=== PATIENT | male | born 1955 | race Two or more races ===

== ENCOUNTER 2024-05-16 17:15 | Inpatient (IN) | payer MEDICARE, BC, SELFPAY ==
[2024-05-16 17:43] VITALS: BP 155/81; PULSE 113; RESP 24; TEMP 38.3; O2SAT 96
--- NOTE | 2024-05-16 17:56 | XR_ITS ---
Examination: PA chest single view Technique technique: PA upright chest single view Exam date and time: May 16, 2024 1802 hrs. Comparison March 09, 2004 Indications: Chest pain today. Findings: The film is mislabeled right to left Normal heart size Mild elevation right hemidiaphragm No pneumonia or pulmonary edema Impression: No active disease
--- NOTE | 2024-05-16 17:58 | EDNOTE_ITS ---
<Statement entered by Selin Jimenez MD - 05/17/24 19:21> As co-signing physician, I was present and available for consult prn. I concur with the plan and care as documented by the midlevel provider. ED Fever RME/HPI General Chief Complaint: Fever Stated Complaint: FEVER, CHILLS Time Seen by Provider: 05/16/24 17:26 Arrival date/time: 05/16/24 17:15 RME / HPI RME / HPI Narrative: 68-year-old male patient with significant medical history hypertension, hypercholesterolemia, came in for evaluation regarding fever and chills. Patient's been having fever and chills since earlier this morning, severity mod erate. Patient had colonoscopy done yesterday in [place] apparently for follow-up regarding upper GI bleed a month ago and was admitted in [place] for 4 days. Currently patient is not having any GI bleed. Patient denies having any cough. Denies any sore throat, denies any abdominal pain denies any other complaints except for generalized body weakness. Went to PCP and was referred here for further management. Patient is only have 1 kidney. Related Data Allergies Allergy/AdvReac Type Severity Reaction Status Date / Time No Known Allergies Allergy Verified 05/16/24 17:16 Review of Systems Review of Systems Narrative Review of Systems: Review of system reviewed and within normal limits except mentioned in HPI Physical Exam Narrative Physical exam: VITAL SIGNS: Reviewed. GENERAL APPEARANCE: Alert and interactive, follows commands, no acute distress, HEAD AND FACE: Non-traumatic. ENT: PERRL, pink conjunctivitis, eyelid no trauma, Mucous membrane moist. NECK: Supple, nontender, no nuchal rigidity. CHEST: No tenderness, no crepitus, no paradoxical movement, no retractions. LUNGS: Clear, well ventilated, symmetric, no rales, no wheezing, no ronchi, no stridor, good breath sounds bilaterally. HEART: Regular rate, regular rhythm, no murmur, no gallops. ABDOMEN: Soft, positive bowel sounds, nondistended, no guarding, nontender, no rebound, no masses, RECTAL: Deferred. GENITAL: Deferred. NEUROLOGICAL: Gross motor function intact sensory function intact, Appropriate for age. MUSCULOSKELETAL: low back nontender, full range of motion. EXTREMITIES: Nontender, full range of motion. SKIN: Color pink, dry, no rash, no lacerations, no abrasions, no contusions. LYMPHATICS: Deferred. Course Quality Measures none Orders Category Date Time Status Bedside COVID-19 Antigen Test NOW Care 05/16/24 17:56 Active Bedside Influenza A&B Antigen Test NOW Care 05/16/24 17:57 Completed COVID-19 Screening Questionnaire NOW Care 05/16/24 20:[address] Screening NOW Care 05/16/24 17:57 Active Auction Block Clerk STAT Care 05/16/24 17:56 Active Continuous Pulse Oximetry STAT Care 05/16/24 17:56 Active Decision to Admit X1 Care 05/16/24 20:12 Active EKG (ED ONLY) *Do not use* NOW Care 05/16/24 17:56 Completed EKG (ED ONLY) *Do not use* NOW Care 05/16/24 20:15 Active In and Out Catheter X1PRN Care 05/16/24 17:56 Active Insert IV NOW Care 05/16/24 17:56 Active NPO STAT Care 05/16/24 17:56 Active Strict Intake and Output Routine Care 05/16/24 17:[address] abd pel w con SEPSIS ANURAG Stat Exams 05/16/24 17:56 Stop Req EKG (ED Only) Stat Exams 05/16/24 17:56 Ordered EKG (ED Only) Stat Exams 05/16/24 20:15 Ordered XR chest 1V SEPSIS PROTOCOL Stat Exams 05/16/24 17:56 Completed B-Type Natriuretic Peptide Stat Lab 05/16/24 18:15 Completed Blood Culture (Lab) Stat Lab 05/16/24 18:17 Received CBC Stat Lab 05/16/24 18:15 Completed Comprehensive Metabolic Panel Stat Lab 05/16/24 18:15 Completed LDH (Lactate Dehydrogenase) Stat Lab 05/16/24 18:15 Completed Lactate (Lactic Acid) Stat Lab 05/16/24 18:15 Completed Lipase Stat Lab 05/16/24 18:15 Completed Magnesium Stat Lab 05/16/24 18:15 Completed Partial Thromboplastin Time Stat Lab 05/16/24 18:15 Completed Phosphorous Stat Lab 05/16/24 18:15 Completed Procalcitonin Stat Lab 05/16/24 18:15 Completed Prothrombin Time with INR Stat Lab 05/16/24 18:15 Completed Troponin I Stat Lab 05/16/24 18:15 Completed Urinalysis Stat Lab 05/16/24 19:18 Completed Urine Culture Stat Lab 05/16/24 19:18 Received Ibuprofen Tab [Motrin Tab] Med 05/16/24 17:57 Discontinued 800 mg PO X1 ONE Oseltamivir [Tamiflu] Med 05/16/24 18:41 Discontinued 75 mg PO X1 ONE Sodium Chloride 0.9% 1000 ml [Ns] 1,000 ml Med 05/16/24 20:13 Active IV 999 mls/hr Sodium Chloride 0.9% 1000 ml [Ns] 1,000 ml Med 05/16/24 20:14 Active IV 999 mls/hr Oxygen Delivery NOW RT 05/16/24 17:56 Active Vital Signs Vital signs: Vital Signs Temperature 100.9 F H 05/16/24 17:43 Pulse Rate 113 H 05/16/24 17:43 Respiratory Rate 24 H 05/16/24 17:43 Blood Pressure 155/81 H 05/16/24 17:43 Pulse Oximetry (%) 96 05/16/24 17:43 Oxygen Delivery Method Room Air 05/16/24 17:43 Fever MDM Narrative MDM Narrative:: 68-year-old male patient with significant medical history hypertension, hypercholesterolemia, came in for evaluation regarding fever and chills. Patient's been having fever and chills since earlier this morning, severity moderate. Patient had colonoscopy done yesterday in [place] apparently for follow-up regarding upper GI bleed a month ago and was admitted in [place] for 4 days. Currently patient is not having any GI bleed. Patient denies having any cough. Denies any sore throat, denies any abdominal pain denies any other complaints except for generalized body weakness. Went to PCP and was referred here for further management. Patient is only have 1 kidney. Patient tested positive for flu, CBC slight leukocytosis, hemoglobin of 11.3 sodium 131, Pro-Vishal of 4.63, urinalysis no UTI, patient's creatinine today was noted to be 3.1, BUN of 30. Patient was given 2 L of IV fluids, and Tamiflu. Was also given Motrin. Plan of care discussed with the patient, and agrees to be admitted for further management regarding TACO and positive flu. Patient is only having 1 kidney. Care discussed with Dr. Simental, hospitalist, admitted the patient. Patient data External records reviewed:: None Clinical information provided by:: none Social determinants that could affect healthcare access:: none Patient has the following chronic illnesses:: None How is presenting disease/condition affected by chronic disease/condition?: no chronic disease Evaluation data The following diagnostics were reviewed and interpreted by me:: lab results, radiology exam(s) and EKG tracing(s) Lab and/or radiology exams considered but not ordered:: None Interpretation Summary: I personally reviewed and interpreted the x-ray of this patient. There is no acute abnormalities found, no infiltrates no pneumothorax no hemothorax normal chest x-ray. Review of other structures was without significant abnormal findings also. I additionally reviewed the radiologist report and agree with the interpretation. Patient tested positive for flu, CBC slight leukocytosis, hemoglobin of 11.3 sodium 131, Pro-Vishal of 4.63, urinalysis no UTI, patient's creatinine today was noted to be 3.1, BUN of 30. Medications / Prescriptions Medications or Prescriptions considered but not ordered:: None Medication administrations:: Medication Administration History Sodium Chloride (Ns) 1,000 mls @ 999 mls/hr IV .Q1H1M ONE Stop: 05/16/24 21:13 Sodium Chloride (Ns) 1,000 mls @ 999 mls/hr IV .Q1H1M ONE Stop: 05/16/24 21:14 Discontinued Medications Ibuprofen (Ibuprofen Tab 400 Mg Tablet) 800 mg PO X1 ONE Stop: 05/16/24 17:58 Last Admin: 05/16/24 18:06 Dose: 800 mg Documented By: OA Oseltamivir Phosphate (Oseltamivir 75 Mg Capsule) 75 mg PO X1 ONE Stop: 05/16/24 18:42 Last Admin: 05/16/24 19:37 Dose: 75 mg Documented By: SF Tamiflu, Motrin, and IV fluids for hydration Consultations Consultation(s) initiated? (list below): Yes Diagnosis Fever Differential Diagnosis: other (Influenza, TACO, generalized body weakness) Most likely diagnosis given after review of the tests above:: TACO, dehydration, influenza Admission Indicated Admission indicated?: not indicated Admission Request Was there a request for admission?: Yes Admission Attestation Admission request attestation: Discussed case with [Shaw,] from Hospitalist service regarding admission. Discussed patients ED course, exam findings, labs, and radiology results. The Hospitalist [agrees,] to accept the patient for admission. Disposition Plan Disposition Plan: Admit Discharge Plan Plan Patient Disposition: Admit Acute Care w/in Hospital Prescriptions/Referrals Referrals: Fidencio Rodriguez MD [Primary Care Provider] - In 1 week Problem List Clinical Impression: Influenza, TACO (acute kidney injury) Patient/Caregiver Discharge Instructions Print Language: Hebrew Stand Alone Forms: Jessie Award Info., Patient Portal Info Letter
[2024-05-16 18:06] VITALS: TEMP 37.9
[2024-05-16] MEDS: IBUPROFEN TAB 400 MG TABLET 800 MG PO (18:06)
[2024-05-16 18:35] LABS: Lactate (Lactic Acid) 1.9 mMol/L (0.4-2.0)
[2024-05-16 18:39] LABS: Basophils # (Auto) 0.1 Thou/mm3 (0.0-0.2); Basophils % (Auto) 1 % (0-2.5); Eosinophils # (Auto) 0.2 Thou/mm3 (0.0-0.5); Eosinophils % (Auto) 1 % (0-10); Hematocrit 32.8 % (41.0-53.0); Hemoglobin 11.3 g/dL (13.5-16.0); Immature Granulocytes % (Auto) 1 % (0-0); Immature Granulocytes Auto 0.07 Thou/mm3 (0.00-0.00); Lymphocytes # (Auto) 0.5 Thou/mm3 (1.0-4.8); Lymphocytes % (Auto) 5 % (10-50); Mean Corpuscular HGB Conc 34.5 g/dl (31.0-37.0); Mean Corpuscular Hemoglobin 31.1 pg (25.0-35.0); Mean Corpuscular Volume 90 fL (80-100); Monocytes % (Auto) 9 % (0-12); Neutrophils # (Auto) 9.2 Thou/mm3 (1.8-7.7); Neutrophils % (Auto) 84 % (37-80); Nucleated Red Blood Cell % 0 /100 WBC (0); Platelet Count 206 Thou/mm3 (140-440); Red Blood Count 3.63 Miln/mm3 (4.50-5.90)
[2024-05-16 18:55] LABS: Partial Thromboplastin Time 25.9 Seconds (22.0-36.0); Prothrombin Time 11.1 Seconds (9.0-12.2)
[2024-05-16 19:02] LABS: B-Type Natriuretic Peptide < 20 pg/mL (0-100)
[2024-05-16 19:12] LABS: Alanine Aminotransferase 38 U/L (10-49); Albumin, Serum 4.6 gm/dL (3.4-4.8); Alkaline Phosphatase 112 U/L (46-116); Anion Gap 9 (7-16); Aspartate Amino Transferase 31 U/L (0-34); BUN/Creatinine Ratio 10 Ratio (12-20); Bilirubin,Total 0.3 mg/dL (0.3-1.2); Blood Urea Nitrogen 30 mg/dL (9-23); Calcium 10.2 mg/dL (8.3-10.6); Calcium (Corrected) 10.2 mg/dL (8.5-10.1); Carbon Dioxide 18.2 mMol/L (20.0-31.0); Chloride 104 mMol/L (98-107); Creatinine (Component) 3.1 mg/dL (0.6-1.3); Globulin 2.3 gm/dL (2.3-3.5); Glucose 199 mg/dL (74-106); LDH (Lactate Dehydrogenase) 238 U/L (120-246); Lipase 73 U/L (12-53); Magnesium 1.5 mg/dL (1.6-2.6); Osmolality,Calculated 274 (275-295); Phosphorous 1.3 mg/dL (2.4-5.1); Potassium 4.8 mMol/L (3.4-5.1); Procalcitonin 4.63 ng/ml (0.0-0.49); Sodium 131 mMol/L (136-145); Total Protein 6.9 gm/dL (5.7-8.2); Troponin I < 0.020 ng/mL (0.0-0.045); eGFR 21 See Note
[2024-05-16 19:26] LABS: Collection Type, Urine Clean Catch; RBC,Urine 0 /hpf (0-3); WBC,Urine 0 /hpf (0-5)
[2024-05-16] MEDS: OSELTAMIVIR 75 MG CAPSULE PO (19:37)
[2024-05-16 19:38] VITALS: TEMP 37.3
[2024-05-16 19:46] VITALS: BP 141/85; PULSE 90; RESP 19; TEMP 36.8; O2SAT 98
[2024-05-16 19:49] LABS: Bacteria,Urine Rare; Bilirubin,Urine Negative (Negative); Blood,Urine Negative (Negative); Clarity,Urine Clear (Clear/Hazy); Color,Urine Lt-Yellow (Lt Yel-Yel); Glucose, Urine Negative (Negative); Hyaline Casts,Urine < 1 /hpf (0-1); Ketones,Urine Negative (Negative); Leukocyte Esterase,Urine Negative (Negative); Nitrite,Urine Negative (Negative); PH,Urine 5.5 (5.0-7.0); Protein,Urine 1+ (Neg - Trace); Specific Gravity,Urine 1.019 (1.001-1.035); Squamous Epithelial Cell,Urine < 1 /hpf (0-5); Urobilinogen,Urine Negative mg/dL (0.0-1.0)
[2024-05-16] MEDS: SODIUM CHLORIDE 0.9% 1000 ML 1,000 ML 999 ML IV ×2 (20:31→20:32)
--- NOTE | 2024-05-16 20:35 | ESHP_ITS ---
Documentation for date of: 05/16/24 HPI - Hospitalist History of Present Illness History of present illness: The patient is a 68-year-old male presenting with fever and chills that began earlier this morning. The fever peaked at 103?F but reduced to 98?F after taking Tylenol. He denies associated symptoms, including cough, sore throat, chest pain, dyspnea, headache, dizziness, abdominal pain, or diarrhea, although he reports a history of occasional diarrhea. He also endorses mild nausea without vomiting. The patient underwent a colonoscopy yesterday in [place] as part of a follow-up evaluation after a hospitalization one month ago for lower GI bleeding secondary to diverticulitis. The colonoscopy findings included multiple small- mouthed diverticula throughout the colon and diffuse severe melanosis of the entire colon. Per prior records, he was admitted from 04/13 to 04/18 due to bacteremia and was DC on ciprofloxacin and metronidazole. There has been no recurrence of GI bleeding since that hospitalization. His medical history includes hypertension, hyperlipidemia, and right nephrectomy for renal cell carcinoma, with no subsequent recurrence or chemotherapy. He denies smoking or alcohol use. Upon arrival to the ED, vital signs showed a temperature of 100.9?F, heart rate 113 bpm, respiratory rate 24/min, blood pressure 155/81 mmHg, and oxygen saturation of 96% on room air. Bedside testing was positive for influenza A. Laboratory studies revealed leukocytosis (WBC 11,000/?L), anemia (hemoglobin 11.3 g/dL), hyponatremia (Na 131 mmol/L), elevated creatinine (3.1 mg/dL), elevated procalcitonin (4.63 ng/mL), and hypomagnesemia (1.5 mg/dL). Urinalysis was negative for infection. Chest X-ray showed no acute cardiopulmonary disease. The patient received one dose of Tamiflu and ibuprofen in the ED for symptom management. Past Medical History (PMH): * Hypertension * Hyperlipidemia * Right nephrectomy for renal cell carcinoma Past Surgical History (PSH): * Right nephrectomy Medications: * Amlodipine-benazepril * Atorvastatin Allergies: * None reported Family History: * Son recently diagnosed with leukemia Social History: * Denies smoking or alcohol use Review of Systems Review of Systems Narrative Review of Systems: A 14 point review of systems was assessed and negative except for that per HPI Past Medical History Social History SMOKING STATUS: Never smoker Meds Home Medications and Allergies Allergies Allergy/AdvReac Type Severity Reaction Status Date / Time No Known Allergies Allergy Verified 05/16/24 17:16 Exam Vital Signs Temp Pulse Resp BP Pulse Ox O2 Del Method 98.3 F 90 19 141/85 H 98 Room Air 05/16/24 19:46 05/16/24 19:46 05/16/24 19:46 05/16/24 19:46 05/16/24 19:46 05/16/24 19:46 Narrative General: Well-nourished male, no acute distress, alert and oriented. HEENT: Normocephalic, atraumatic, EOMI. Hard of hearing. Neck: Supple, no lymphadenopathy. Chest: Clear breath sounds bilaterally, no wheezes, no rhonchi. Cardiac: S1, S2 irregular rate and rhythm, no murmurs. Abdomen: Soft, nontender, no organomegaly. Extremities: No cyanosis, clubbing, or edema. Neurologic: No focal deficits, no sensory deficits. Psychosocial: Non-focal, no signs of depression. Skin: Warm and dry. Results - Hospitalist Labs Diagrams: 05/16/24 18:15 05/16/24 18:15 Labs: Short CBC 05/16/24 Range/Units 18:15 WBC 11.0 H (3.8-10.6) Thou/mm3 Hgb 11.3 L (13.5-16.0) g/dL Hct 32.8 L (41.0-53.0) % Plt Count 206 (140-440) Thou/mm3 BMP 05/16/24 18:15 Sodium 131 L Potassium 4.8 Chloride 104 Carbon Dioxide 18.2 L BUN 30 H Creatinine 3.1 H Glucose 199 H Calcium 10.2 Cardiac Enzymes 05/16/24 Range/Units 18:15 Troponin I < 0.020 (0.0-0.045) ng/mL Liver Function 05/16/24 Range/Units 18:15 Total Bilirubin 0.3 (0.3-1.2) mg/dL AST 31 (0-34) U/L ALT 38 (10-49) U/L Alkaline Phosphatase 112 (46-116) U/L Albumin 4.6 (3.4-4.8) gm/dL Urine 05/16/24 Range/Units 19:18 Urine Color Lt-Yellow (Lt Yel-Yel) Urine Clarity Clear (Clear/Hazy) Urine pH 5.5 (5.0-7.0) Ur Specific [place] 1.019 (1.001-1.035) Urine Protein 1+ A (Neg - Trace) Urine Glucose (UA) Negative (Negative) Assessment & Plan -Hospitalist Patient Synopsis Influenza A infection: Positive influenza A; started on Tamiflu. Continue antiviral therapy and monitor for complications such as secondary bacterial infection or dehydration. Acute kidney injury on chronic kidney disease: Elevated creatinine, possibly prerenal from dehydration. Monitor renal function, optimize fluid status. Hyponatremia and hypomagnesemia: Correct electrolytes as needed. History of diverticulitis: No active GI symptoms; continue monitoring. Hypertension: Continue norvasc, hold ACEI; monitor blood pressure during admission. DVT prophylaxis: Heparin SC Renal diet Quality Measures Quality Measures VTE prophylaxis Advance care planning discussed with:: patient
[2024-05-16 20:36] VITALS: PULSE 83; RESP 18; RESP 98
[2024-05-16] MEDS: ATORVASTATIN CALCIUM 20 MG TABLET 40 MG PO (20:57)
[2024-05-16] MEDS: cefTRIAXone/D5w 1gm IV premix 50 ML IV (20:58)
[2024-05-16] MEDS: Magnesium Sulfate 2 GM Ivpb 2 GM/50 ML BAG IV (21:10)
[2024-05-16] MEDS: SOD PHOS ADDITIVE 22.5 MMOL in SODIUM CHLORIDE 0.9% 500 ML 500 ML 82.778 MMOL IV (21:20)
[2024-05-16] MEDS: SODIUM CHLORIDE 0.9% 1000 ML 1,000 ML 75 ML IV (21:37)
[2024-05-16] MEDS: INSULIN HUM REGULAR 1 UNIT/0.01 ML (PER UNIT) SC (21:58)
[2024-05-16] MEDS: HEPARIN SOD INJ 5000 UNIT/ML VIAL SC (21:58)
[2024-05-16 22:50] LABS: Respiratory Syncytial Virus Ag Negative (Negative)
[2024-05-16 23:05] LABS: Glucose Estimated Average 131 mg/dL (80-131); Hemoglobin A1C 6.2 % Hgb (4.8-6.0)
[2024-05-17] VITALS (10 sets, daily range): BP systolic 116–149; BP diastolic 76–84; PULSE 68–84; RESP 16–18; TEMP 36.2–36.8; O2SAT 96–98
[2024-05-17] MEDS: HEPARIN SOD INJ 5000 UNIT/ML VIAL SC ×3 (05:14→21:15)
[2024-05-17 05:55] LABS: Basophils % (Auto) 1 % (0-2.5); Eosinophils # (Auto) 0.1 Thou/mm3 (0.0-0.5); Eosinophils % (Auto) 2 % (0-10); Hemoglobin 9.2 g/dL (13.5-16.0); Immature Granulocytes % (Auto) 0 % (0-0); Immature Granulocytes Auto 0.02 Thou/mm3 (0.00-0.00); Lymphocytes # (Auto) 1.4 Thou/mm3 (1.0-4.8); Lymphocytes % (Auto) 23 % (10-50); Mean Corpuscular HGB Conc 34.1 g/dl (31.0-37.0); Mean Corpuscular Hemoglobin 31.3 pg (25.0-35.0); Mean Corpuscular Volume 92 fL (80-100); Monocytes # (Auto) 0.8 Thou/mm3 (0.0-0.8); Monocytes % (Auto) 14 % (0-12); Neutrophils # (Auto) 3.6 Thou/mm3 (1.8-7.7); Neutrophils % (Auto) 60 % (37-80); Nucleated Red Blood Cell % 0 /100 WBC (0); Platelet Count 185 Thou/mm3 (140-440); RDW Standard Deviation 41.4 fL (35.1-43.9); Red Blood Count 2.94 Miln/mm3 (4.50-5.90)
[2024-05-17 06:29] LABS: Anion Gap 8 (7-16); BUN/Creatinine Ratio 11 Ratio (12-20); Blood Urea Nitrogen 28 mg/dL (9-23); Calcium 9.1 mg/dL (8.3-10.6); Carbon Dioxide 20.9 mMol/L (20.0-31.0); Chloride 112 mMol/L (98-107); Creatinine (Component) 2.6 mg/dL (0.6-1.3); Estimated Creatinine Clearance 28.7 mL/min (>60); Glucose 110 mg/dL (74-106); Osmolality,Calculated 287 (275-295); Phosphorous 4.9 mg/dL (2.4-5.1); Potassium 4.8 mMol/L (3.4-5.1); Sodium 141 mMol/L (136-145); eGFR 26 See Note
[2024-05-17] MEDS: amLODIPine BESYLATE 5 MG TABLET 10 MG PO (08:47)
[2024-05-17] MEDS: cefTRIAXone/D5w 1gm IV premix 50 ML IV (08:47)
[2024-05-17] MEDS: OSELTAMIVIR 6 MG/ML 30 MG PO (10:42)
--- NOTE | 2024-05-17 11:53 | PC.SS ---
Patient is alert/oriented. He resides with family. He is independent with ADL's. Patient was admitted for sepsis. Patient is positive for influenza. His p.c.p. : Dr. Rodriguez with [facility]. Last appt. was 2 weeks ago. Patient states his alt medical decision maker is his son, Ricki. He will also provide transportation as needed. D/c plan: return home.
[2024-05-17] MEDS: INSULIN HUM REGULAR 1 UNIT/0.01 ML (PER UNIT) SC (12:00)
[2024-05-17] MEDS: SODIUM CHLORIDE 0.9% 1000 ML 1,000 ML 75 ML IV (12:31)
--- NOTE | 2024-05-17 16:31 | PD.HHPROG ---
Documentation for date of: 05/17/24 Subjective - Hospitalist Subjective Interval history: Patient was seen and examined at the bedside. 24-hour events, labs, imaging studies, and reports reviewed in details. Creatinine slightly improved. Patient denies new complaints. He feels okay. He denied any cough or shortness of breath. Review of Systems Review of Systems Narrative Review of Systems: Review of systems: 12 point of system reviewed. All negative except as mentioned above. Exam Vital Signs Temp Pulse Resp BP Pulse Ox O2 Del Method O2 Flow Rate 97.1 F 79 18 149/84 H 97 Room Air 0 05/17/24 16:00 05/17/24 16:00 05/17/24 16:00 05/17/24 16:00 05/17/24 16:00 05/17/24 16:00 05/16/24 20:36 Narrative General: Alert and oriented x3. In no acute distress. Eyes: Pupils are equal and reactive to light bilaterally. HEENT: Atraumatic, normocephalic. No JVD noted. Cardiovascular: Normal S1 and S2. Normal rate and regular rhythm. No murmurs appreciated. No peripheral pitting edema noted. No JVD noted. Respiratory: No respiratory distress. Lungs are clear to auscultation bilaterally. No wheezing or crackles heard. Abdomen: Soft, nontender, nondistended. Skin: No rash. Warm to touch. Musculoskeletal: No gross injuries. Able to move all 4 extremities. Neuro: Alert and oriented x3. Sensation is intact throughout. Strength is 5/5 and symmetric. No focal neuro deficits. Psych: Normal affect and mood. Objective - Hospitalist Labs Diagram: 05/17/24 05:15 05/17/24 05:15 Labs: Laboratory Results - last 24 hr 05/16/24 05/16/24 05/16/24 18:15 19:18 21:45 WBC 11.0 H RBC 3.63 L Hgb 11.3 L Hct 32.8 L MCV 90 MCH 31.1 MCHC 34.5 RDW Std Deviation 40.0 Plt Count 206 Neut % (Auto) 84 H Lymph % (Auto) 5 L [place] % (Auto) 9 Eos % (Auto) 1 Baso % (Auto) 1 Neut # (Auto) 9.2 H Lymph # (Auto) 0.5 L [place] # (Auto) 1.0 H Eos # (Auto) 0.2 Baso # (Auto) 0.1 Immature Gran # (Auto) 0.07 H Absolute Nucleated RBC 0.00 Immature Gran % 1 H Nucleated RBC % 0 PT 11.1 INR 1.0 APTT 25.9 Sodium 131 L Potassium 4.8 Chloride 104 Carbon Dioxide 18.2 L Anion Gap 9 BUN 30 H Creatinine 3.1 H Estim Creat Clear Calc Not Performed. eGFR 21 L BUN/Creatinine Ratio 10 L Glucose [address] Glu mg/dL 131 Hemoglobin A1c 6.2 H Calculated Osmolality 274 L Lactic Acid 1.9 Calcium 10.2 Corrected Calcium 10.2 H Phosphorus 1.3 L Magnesium 1.5 L Total Bilirubin 0.3 AST 31 ALT 38 Alkaline Phosphatase 112 Lactate Dehydrogenase 238 Troponin I < 0.020 B-Natriuretic Peptide < 20 Total Protein 6.9 Albumin 4.6 Globulin 2.3 Albumin/Globulin Ratio 2.0 Lipase 73 H Procalcitonin 4.63 H Ur Collection Type Clean Catch Urine Color Lt-Yellow Urine Clarity Clear Urine pH 5.5 Ur Specific Deputy 1.019 Urine Protein 1+ A Urine Glucose (UA) Negative Urine Ketones Negative Urine Blood Negative Urine Nitrite Negative Urine Bilirubin Negative Urine Urobilinogen (Auto) Negative Ur Leukocyte Esterase Negative Urine RBC 0 Urine WBC 0 Ur Squamous Epith Cells < 1 Urine Bacteria Rare Hyaline Casts < 1 RSV Rapid Negative 05/17/24 05:15 WBC 6.0 D RBC 2.94 L Hgb 9.2 L D Hct 27.0 L MCV 92 MCH 31.3 MCHC 34.1 RDW Std Deviation 41.4 Plt Count 185 Neut % (Auto) 60 Lymph % (Auto) 23 [place] % (Auto) 14 H Eos % (Auto) 2 Baso % (Auto) 1 Neut # (Auto) 3.6 Lymph # (Auto) 1.4 [place] # (Auto) 0.8 Eos # (Auto) 0.1 Baso # (Auto) 0.0 Immature Gran # (Auto) 0.02 H Absolute Nucleated RBC 0.00 Immature Gran % 0 Nucleated RBC % 0 PT INR APTT Sodium 141 D Potassium 4.8 Chloride 112 H Carbon Dioxide 20.9 Anion Gap 8 BUN 28 H Creatinine 2.6 H D Estim Creat Clear Calc 28.7 L eGFR 26 L BUN/Creatinine Ratio 11 L Glucose [address] Glu mg/dL Hemoglobin A1c Calculated Osmolality 287 Lactic Acid Calcium 9.1 Corrected Calcium Phosphorus 4.9 Magnesium 2.0 Total Bilirubin AST ALT Alkaline Phosphatase Lactate Dehydrogenase Troponin I B-Natriuretic Peptide Total Protein Albumin Globulin Albumin/Globulin Ratio Lipase Procalcitonin Ur Collection Type Urine Color Urine Clarity Urine pH Ur Specific Deputy Urine Protein Urine Glucose (UA) Urine Ketones Urine Blood Urine Nitrite Urine Bilirubin Urine Urobilinogen (Auto) Ur Leukocyte Esterase Urine RBC Urine WBC Ur Squamous Epith Cells Urine Bacteria Hyaline Casts RSV Rapid Assessment & Plan Patient Synopsis 68-year-old male who presented with a chief complaint of fevers, chills, generalized weakness. He was found to have influenza A and TACO on CKD. Influenza A infection: Positive influenza A; started on Tamiflu. Continue antiviral therapy and monitor for complications such as secondary bacterial infection or dehydration. Acute kidney injury on chronic kidney disease: Improved possibly prerenal from dehydration. Held benazepril. Monitor renal function, continue IV fluids. Monitor BMP. Avoid nephrotoxins. Hyponatremia and hypomagnesemia: Correct electrolytes as needed. History of diverticulitis: No active GI symptoms; continue monitoring. Hypertension: Continue norvasc, hold ACEI; monitor blood pressure during admission. DVT prophylaxis: Heparin SC Renal diet Time Spent with Patient Time: Total time spent is greater than 50% in coordination of care (as documented) at patient's floor/unit and/or counseling patient: Time with patient: 25 - 35 minutes Reason for Continued Stay Reason for continued stay: acute renal failure Quality Measures Quality Measures VTE prophylaxis Advance care planning discussed with:: patient
[2024-05-17] MEDS: ATORVASTATIN CALCIUM 20 MG TABLET 40 MG PO (21:17)
[2024-05-18] VITALS (9 sets, daily range): BP systolic 137–151; BP diastolic 75–93; PULSE 66–83; RESP 16–18; TEMP 36.1–36.8; O2SAT 97–98
[2024-05-18] MEDS: SODIUM CHLORIDE 0.9% 1000 ML 1,000 ML 75 ML IV (02:39)
[2024-05-18] MEDS: HEPARIN SOD INJ 5000 UNIT/ML VIAL SC (05:11)
[2024-05-18 06:19] LABS: Basophils % (Auto) 1 % (0-2.5); Eosinophils # (Auto) 0.2 Thou/mm3 (0.0-0.5); Eosinophils % (Auto) 3 % (0-10); Hematocrit 28.6 % (41.0-53.0); Hemoglobin 9.6 g/dL (13.5-16.0); Immature Granulocytes % (Auto) 1 % (0-0); Immature Granulocytes Auto 0.03 Thou/mm3 (0.00-0.00); Lymphocytes # (Auto) 1.5 Thou/mm3 (1.0-4.8); Lymphocytes % (Auto) 25 % (10-50); Mean Corpuscular HGB Conc 33.6 g/dl (31.0-37.0); Mean Corpuscular Hemoglobin 31.2 pg (25.0-35.0); Mean Corpuscular Volume 93 fL (80-100); Monocytes # (Auto) 0.7 Thou/mm3 (0.0-0.8); Monocytes % (Auto) 11 % (0-12); Neutrophils # (Auto) 3.6 Thou/mm3 (1.8-7.7); Neutrophils % (Auto) 60 % (37-80); Nucleated Red Blood Cell % 0 /100 WBC (0); Platelet Count 179 Thou/mm3 (140-440); RDW Standard Deviation 41.8 fL (35.1-43.9); Red Blood Count 3.08 Miln/mm3 (4.50-5.90)
[2024-05-18 06:39] LABS: Anion Gap 6 (7-16); BUN/Creatinine Ratio 8 Ratio (12-20); Blood Urea Nitrogen 17 mg/dL (9-23); Calcium 9.7 mg/dL (8.3-10.6); Carbon Dioxide 22.3 mMol/L (20.0-31.0); Chloride 113 mMol/L (98-107); Creatinine (Component) 2.2 mg/dL (0.6-1.3); Estimated Creatinine Clearance 33.9 mL/min (>60); Glucose 100 mg/dL (74-106); Osmolality,Calculated 282 (275-295); Potassium 4.5 mMol/L (3.4-5.1); Sodium 141 mMol/L (136-145); eGFR 32 See Note
[2024-05-18] MEDS: cefTRIAXone/D5w 1gm IV premix 50 ML IV (08:28)
[2024-05-18] MEDS: OSELTAMIVIR 6 MG/ML 30 MG PO (08:28)
[2024-05-18] MEDS: amLODIPine BESYLATE 5 MG TABLET 10 MG PO (08:29)
--- NOTE | 2024-05-18 09:56 | PD.RESDS ---
Planned Discharge Date 05/18/24 DS: Providers Provider Date of admission: 05/16/24 20:30 Primary care physician: Fidencio Rodriguez MD Admitting Provider: Camden Simental MD Attending Provider on Admission: Camden Simental MD Consults: 05/16/24 23:06 Referral Cori Routine Comment: 05/16/24 23:07 Referral Respiratory Therapy Routine Comment: Attending Provider on DC: Tiffanie Guzman MD Discharging Provider: Tiffanie Guzman MD DS: Diagnosis Problem List Completed Was Problem List Reviewed/Reconciled?: Yes Hospital Course Hospital Course Hospital course: Patient was a 68-year-old male with HTN, HLD, history of renal cell carcinoma s/p right nephrectomy recent GI bleed secondary to diverticulitis who presented with fever and chills associated with mild nausea without vomiting. He denied any upper or lower GI bleed. Patient was found to have influenza A and labs were consistent with TACO on CKD. Patient was started on Tamiflu, renally dosed, and given IV fluids. His home benazepril was held and he was started on amlodipine for hypertension. As patient's condition and labs improved, he was stable for discharge. Return precautions were provided for patient. #Influenza A #TACO on CKD #Dehydration, improved #Hypertension #Electrolyte abnormalities #History of diverticulitis Discharge plan: Renally dosed Tamiflu was sent to complete 5-day course. Prescription of amlodipine 10 mg was also sent, and patient was advised to hold combination amlodipine?benazepril until repeating a basic metabolic panel and following up with PCP. Patient's pharmacy was made aware of change to antihypertensive regimen. Patient seen and care discussed with my attending Dr. Burk. Tiffanie Guzman MD PGY-3 Status at Discharge Cognitive/behavioral status at discharge: AAOx3 Time Spent with Patient Time attestation: Total time spent providing and/or coordinating discharge services: Time spent: Greater than 30 minutes Exam Vital Signs Temp Pulse Resp BP Pulse Ox O2 Del Method O2 Flow Rate 98.3 F 82 16 151/84 H 98 Room Air 0 05/18/24 07:52 05/18/24 08:29 05/18/24 07:52 05/18/24 08:29 05/18/24 07:52 05/18/24 07:52 05/18/24 04:00 Narrative Exam Gen: AAOx3, resting comfortably, pleasant to speak with HEENT: NCAT, PERRLA, EOMI, MMM, no LAD CVS: normal S1, S2. RRR. No MRG Resp: CTA B/L. No rhonchi, rales, crackles or wheezing Abd: soft, non-tender, non-distended. BS+ in all 4 quadrants. No CVA tenderness MSK: Good ROM in BUE & BLE. No edema or rash. Neuro: CN II-XII grossly intact. Strength 5/5 in BUE & BLE. Discharge Plan Plan Patient Disposition: HOME (Self Care) Patient condition on transfer: Stable Care Plan Goals: Please follow up with your PCP in 1 week, after having basic metabolic panel drawn to evaluate your kidney function. We have held your amlodipine-benazepril combo medication, and given a prescription of amlodipine 10mg only for hypertension. As above, have your PCP resume combo medication once kidney function improves We have sent Tamiflu 30mg per day for another 3 days Prescriptions/Referrals Prescriptions/Med Rec: New amlodipine 10 mg tablet 10 mg PO QDAY 30 Days Qty: 30 0RF oseltamivir 30 mg capsule 30 mg PO QDAY 3 Days Qty: 3 0RF Continued atorvastatin 40 mg tablet 40 mg PO QDAY Patient Comments: TAKE 1 TABLET BY MOUTH EVERY DAY Held amlodipine-benazepril 10-20 mg capsule 1 cap PO QDAY Hold Instructions: Resume on 06/01/24. Holding combo (amlodipine-benazepril) due to TACO. Repeat basic metabolic panel, and if kidney function improves, have PCP resume amlodipine-benazepril Patient Comments: TAKE 1 CAPSULE BY MOUTH EVERY DAY Referrals: Fidencio Rodriguez MD [Primary Care Provider] - Outpatient Orders (i.e. Home Health, Labs, Imaging): Basic Metabolic Panel (Routine) Timeframe: 1 Week Facility: [facility] - Location: Laboratory Ordered By: Tiffanie Guzman Patient/Caregiver Discharge Instructions Discharge Activity: activity as tolerated Education Materials: The Flu (Influenza) Print Language: Uzbek Stand Alone Forms: Jessie Award Info., Patient Portal Info Letter Discharge Order Discharge Orders: Discharge (Routine); Ordered 05/18/24 Ordered By: Tiffanie Guzman Quality Discharge Quality Measures VTE prophylaxis Attestestation Attestation I reviewed labs, imaging, EKG, home medications and prior available records. Face to face evaluation was performed by me. I have personally examined the patient and discussed assessment and plan with the IM team. I reviewed the resident note and agree with the plan with exceptions as below. See my addendum in a separate note for the same date.
--- NOTE | 2024-05-18 11:46 | PD.ADDPROG ---
Addendum Progress Note Addendum Date of report being addended: 05/18/24 Narrative: Attending's attestation: I reviewed labs, imaging, EKG, home medications and prior available records. Face to face evaluation was performed by me. I have personally examined the patient and discussed assessment and plan with the IM team. I reviewed the resident note and agree with the plan with exceptions as below. Influenza A Acute kidney injury Dehydration Primary hypertension
--- NOTE | 2024-05-18 11:49 | PD.ADDDSCHGE ---
Addendum Discharge Addendum Date of report being addended: 05/18/24 Narrative: Attending's attestation: I reviewed labs, imaging, EKG, home medications and prior available records. Face to face evaluation was performed by me. I have personally examined the patient and discussed assessment and plan with the IM team. I reviewed the resident note and agree with the plan with exceptions as below. Influenza A Acute kidney injury Dehydration Primary hypertension Complete a course of Tamiflu Hold benazepril. Continue amlodipine. Monitor BP. Repeat kidney function test in 1 week. If back to baseline then discussed resuming benazepril with PCP. Encourage oral hydration. Time spent is 40 minutes. More than 50% of the time was spent on patient education and coordination of care.
== END 2024-05-18 12:34 | disposition home or self-care (01) | DRG 683 ==
LOC: SERX 20:39 → SERHOLD 20:56 → S3SX 22:36
PROVIDERS: Nurse Practitioner Family; Admitting Provider Internal Medicine; Emergency Provider Emergency Medicine; PCP Internal Medicine; Visit Provider Internal Medicine
DX: N17.9 Acute kidney failure, unspecified (principal); E87.1 Hypo-osmolality and hyponatremia; E86.0 Dehydration; E78.00 Pure hypercholesterolemia, unspecified; E83.42 Hypomagnesemia; I12.9 Hypertensive chronic kidney disease with stage 1 through stage 4 chronic kidney disease, or unspecified chronic kidney disease; J10.1 Influenza due to other identified influenza virus with other respiratory manifestations; N18.9 Chronic kidney disease, unspecified; D63.1 Anemia in chronic kidney disease; Z85.528 Personal history of other malignant neoplasm of kidney; Z87.19 Personal history of other diseases of the digestive system; Z90.5 Acquired absence of kidney
CPT/HCPCS: 36415; 71045; 80048; 80053; 81001; 83036; 83605; 83615; 83690; 83735; 83880; 84100; 84145; 84484; 85025; 85610; 85730; 87040; 87081; 87086; 87400; 87634; 87811; 93005; 93225; 94762; 96361; 96365; 96372; 99285; J0696; J1643; J1815; J3475; J7030; J7040; A9270; J1644

== ENCOUNTER 2024-07-08 11:28 | Emergency (ER) | payer MEDICARE, BC, SELFPAY ==
[2024-07-08 11:28] VITALS: BMI 29.1
--- NOTE | 2024-07-08 11:34 | EKG_ITS ---
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
[2024-07-08 11:53] VITALS: BP 169/94; PULSE 105; RESP 20; TEMP 37.9; O2SAT 94; BMI 29.0
[2024-07-08 12:07] VITALS: TEMP 39.1
--- NOTE | 2024-07-08 12:07 | XR_ITS ---
Examination: PA lateral chest 2 views TECHNIQUE: Upright PA lateral chest 2 views Exam date and time: July 08, 2024 1222 hours INDICATIONS: Dizziness fever beginning 3 days ago. FINDINGS: Atelectasis versus early pneumonia left base Mild prominence left ventricle No pulmonary edema IMPRESSION: Atelectasis versus early pneumonia left base
--- NOTE | 2024-07-08 12:08 | PD.EDRME ---
Rapid Medical Screening Exam [facility] Arrival date/time: 07/08/24 11:28 68-year-old male presents emergency department complaints of fever, cough, body aches nausea vomiting since last night Chief Complaint: Abdominal Pain Vital signs: Vital Signs Temperature 100.3 F 07/08/24 11:53 Pulse Rate 105 H 07/08/24 11:53 Respiratory Rate 20 07/08/24 11:53 Blood Pressure 169/94 H 07/08/24 11:53 Pulse Oximetry (%) 94 L 07/08/24 11:53 Oxygen Delivery Method Room Air 07/08/24 11:53
[2024-07-08] MEDS: IBUPROFEN TAB 400 MG TABLET 800 MG PO (12:49)
[2024-07-08] MEDS: ONDANSETRON ODT 4 MG TABRAP PO (12:50)
[2024-07-08 13:01] LABS: Lactate (Lactic Acid) 2.3 mMol/L (0.4-2.0)
[2024-07-08 13:08] LABS: Basophils % (Auto) 0 % (0-2.5); Eosinophils % (Auto) 0 % (0-10); Hematocrit 43.7 % (41.0-53.0); Immature Granulocytes % (Auto) 1 % (0-0); Lymphocytes # (Auto) 1.5 Thou/mm3 (1.0-4.8); Lymphocytes % (Auto) 16 % (10-50); Mean Corpuscular HGB Conc 34.3 g/dl (31.0-37.0); Mean Corpuscular Hemoglobin 30.7 pg (25.0-35.0); Mean Corpuscular Volume 90 fL (80-100); Monocytes # (Auto) 1.2 Thou/mm3 (0.0-0.8); Monocytes % (Auto) 12 % (0-12); Neutrophils # (Auto) 6.9 Thou/mm3 (1.8-7.7); Neutrophils % (Auto) 71 % (37-80); Nucleated Red Blood Cell % 0 /100 WBC (0); Platelet Count 217 Thou/mm3 (140-440); RDW Standard Deviation 45.6 fL (35.1-43.9); Red Blood Count 4.88 Miln/mm3 (4.50-5.90); White Blood Count 9.8 Thou/mm3 (3.8-10.6)
[2024-07-08 13:33] LABS: Alanine Aminotransferase 45 U/L (10-49); Albumin, Serum 5.1 gm/dL (3.4-4.8); Albumin/Globulin Ratio 1.9 (1.2-2.2); Alkaline Phosphatase 140 U/L (46-116); Anion Gap 13 (7-16); Aspartate Amino Transferase 37 U/L (0-34); BUN/Creatinine Ratio 15 Ratio (12-20); Bilirubin,Total 0.6 mg/dL (0.3-1.2); Blood Urea Nitrogen 23 mg/dL (9-23); Calcium 9.8 mg/dL (8.3-10.6); Calcium (Corrected) 9.8 mg/dL (8.5-10.1); Carbon Dioxide 23.9 mMol/L (20.0-31.0); Chloride 98 mMol/L (98-107); Creatinine (Component) 1.5 mg/dL (0.6-1.3); Estimated Creatinine Clearance 48.1 mL/min (>60); Globulin 2.7 gm/dL (2.3-3.5); Glucose 105 mg/dL (74-106); Osmolality,Calculated 273 (275-295); Procalcitonin 0.86 ng/ml (0.0-0.49); Sodium 135 mMol/L (136-145); Total Protein 7.8 gm/dL (5.7-8.2); eGFR 50 See Note
[2024-07-08 14:46] VITALS: BP 120/64; PULSE 100; RESP 20; TEMP 36.8; O2SAT 96
[2024-07-08 15:12] LABS: Collection Type, Urine Clean Catch; Squamous Epithelial Cell,Urine 0 /hpf (0-5)
[2024-07-08 15:17] LABS: Bilirubin,Urine Negative (Negative); Blood,Urine Negative (Negative); Clarity,Urine Clear (Clear/Hazy); Color,Urine Yellow (Lt Yel-Yel); Glucose, Urine Negative (Negative); Ketones,Urine Negative (Negative); Leukocyte Esterase,Urine Negative (Negative); Nitrite,Urine Negative (Negative); Protein,Urine 1+ (Neg - Trace); RBC,Urine < 1 /hpf (0-3); Specific Gravity,Urine 1.019 (1.001-1.035); Urobilinogen,Urine Negative mg/dL (0.0-1.0); WBC,Urine 1 /hpf (0-5)
[2024-07-08 15:58] LABS: Reflex Lactate? Y
[2024-07-08 16:41] LABS: Lactic Acid, 3 HR 2.1 mMol/L (0.4-2.0)
[2024-07-08 19:23] VITALS: BP 114/74; PULSE 85; RESP 18; TEMP 36.2; O2SAT 97
--- NOTE | 2024-07-08 20:05 | EDNOTE_ITS ---
ED Abdominal Pain RME/HPI General Chief Complaint: Abdominal Pain Stated complaint: ABD. PAIN, NAUSEA, VOMITING Time seen by provider: 07/08/24 18:43 Arrival date/time: 07/08/24 11:28 Limitations: no limitations RME / HPI RME / HPI narrative: 07/08/24 11:28 68-year-old male presents emergency department complaints of fever, cough, body aches nausea vomiting since last night Dr. [facility] Main ED Evaluation: 68yo male presents to the ED for a chief complaint of a fever x last night. Patient states he's had a fever of 103 since last night. He reports associated nausea and a minimal cough. He denies any vomiting, abdominal pain, back pain, UTI symptoms or any other associated symptoms. He denies any sick contacts at home. He states he is drinking fluids. No known allergies. Related Data Home Medications ?Medication ?Instructions ?Recorded ?Confirmed amlodipine 10 mg-benazepril 20 mg 1 cap PO QDAY 05/17/24 capsule Held on 05/18/24. Instructions: Resume on 06/01/24. Holding combo (amlodipine-benazepril) due to TACO. Repeat basic metabolic panel, and if kidney function improves, have PCP resume amlodipine-benazepril atorvastatin 40 mg tablet 40 mg PO QDAY 05/17/2405/17 Previous Rx's ?Medication ?Instructions ?Recorded amoxicillin 875 mg-potassium 1 tab PO BID #20 tabs 08/27 clavulanate 125 mg tablet Allergies Allergy/AdvReac Type Severity Reaction Status Date / Time No Known Allergies Allergy Verified 07/08/24 11:30 Review of Systems Review of Systems Systems Reviewed: All systems reviewed, normal except as documented Past Medical History Past Medical History CARDIAC: Negative Cardiac Disorders or Congestive Heart Failure RESPIRATORY: Negative Chronic Obstructive Pulmonary Disease (COPD) or Asthma GENITOURINARY: Negative Renal Disease ENDOCRINE: Negative Diabetes Mellitus Type 1 or Diabetes Mellitus Type 2 HEMATOLOGIC: Negative Sickle Cell Disease Social History SMOKING STATUS: Never smoker ED Exam General Limitations: Present no limitations General appearance: Present alert and in no apparent distress Head Head exam: Present atraumatic Eye Eye exam: Present normal appearance, PERRL and EOMI ENT ENT exam: Present normal exam, normal oropharynx and mucous membranes moist Neck Neck exam: Present normal inspection, full ROM and trachea midline Chest Chest inspection: Present normal inspection and symmetric chest wall rise Respiratory Respiratory exam: Present normal lung sounds bilaterally Cardiovascular Cardiovascular exam: Present regular rate, normal rhythm and normal heart sounds Abdominal Exam Abdominal exam: Present soft and normal bowel sounds Extremities Exam Extremities exam: Present normal inspection and full ROM Back Exam Back exam: Present normal inspection and full ROM Neurological Exam Neurological exam: Present alert, oriented X3 and CN II-XII intact Psychiatric Psychiatric exam: Present normal affect and normal mood Skin Skin exam: Present warm, dry, intact and normal color Course Course Course Narrative: CXR is ordered for determining the etiology of cough. Quality Measures none Orders Category Date Time Status Bedside COVID-19 Antigen Test NOW Care 07/08/24 12:07 Completed Bedside Influenza A&B Antigen Test NOW Care 07/08/24 12:[address] Screening NOW Care 07/08/24 17:45 Completed EKG (ED ONLY) *Do not use* NOW Care 07/08/24 11:34 Completed EKG (ED Only) Stat Exams 07/08/24 11:34 Draft EKG (ED Only) Urgent Exams 07/08/24 11:34 Stop Req XR chest 2V Stat Exams 07/08/24 12:07 Completed Blood Culture (Lab) Stat Lab 07/08/24 11:50 Results CBC Stat Lab 07/08/24 12:50 Completed Comprehensive Metabolic Panel Stat Lab 07/08/24 12:50 Completed Lactate (Lactic Acid) Stat Lab 07/08/24 12:50 Completed Lactic Acid [Lactate (Lactic Acid)] Stat Lab 07/08/24 21:43 Completed Lactic Acid, 3 HR Stat Lab 07/08/24 16:29 Completed Procalcitonin Stat Lab 07/08/24 12:50 Completed Urinalysis Stat Lab 07/08/24 15:02 Completed Urine Culture Stat Lab 07/08/24 15:02 Completed Azithromycin Inj [Zithromax Inj] 500 mg Med 07/08/24 20:14 Discontinued Sodium Chloride 0.9% 250 ml [Ns] 250 ml IV X1 Ibuprofen Tab [Motrin Tab] Med 07/08/24 12:07 Discontinued 800 mg PO X1 ONE Ondansetron Odt [Zofran Odt] Med 07/08/24 12:07 Discontinued 4 mg PO X1 ONE Sodium Chloride 0.9% 1000 ml [Ns] 2,517 ml Med 07/08/24 20:14 Discontinued IV 2,517 mls/hr cefTRIAXone [Rocephin] 1,000 mg Med 07/08/24 20:34 Discontinued Sodium Chloride 0.9% [Ns] 50 ml IV X1 Vital Signs Vital signs: Vital Signs Temperature 100.3 F 07/08/24 11:53 Pulse Rate 105 H 07/08/24 11:53 Respiratory Rate 20 07/08/24 11:53 Blood Pressure 169/94 H 07/08/24 11:53 Pulse Oximetry (%) 94 L 07/08/24 11:53 Oxygen Delivery Method Room Air 07/08/24 11:53 Pulse ox is 94% on room air, which is slightly hypoxic according to my interpretation. Abdominal Pain MDM Patient data External records reviewed:: [facility] previous records (Per chart review, patient was admitted here on 05/16/24 for TACO.) Clinical information provided by:: patient Social determinants that could affect healthcare access:: none Patient has the following chronic illnesses:: none How is presenting disease/condition affected by chronic disease/condition?: no chronic disease Evaluation data The following diagnostics were reviewed and interpreted by me:: lab results and EKG tracing(s) Lab and/or radiology exams considered but not ordered:: none Interpretation Summary: Bedside Influenza is positive, WBC count is normal, Creatinine is 1.5, Lactic Acid is elevated at 2.1, Procalcitonin is elevated at 0.86, UA is unremarkable, according to my interpretation. Repeat Lactic Acid is normal at 1.5. EKG done at 1151, sinus tachycardia, rate of 102, QTc: 373, no ST elevations or depressions, no STEMI, according to my interpretation. [facility] Report Signed Patient: MANJU GARCIA. Record#: [id number] Birthdate: 1955 Age/Sex: 68 / M Location: [facility] Attending Dr: Ordering Physician: Randy (OMEGA),Narayan DUFF Date of Service: 07/08/24 Procedure(s): XR chest 2V Accession Number(s): [id number] cc: Randy HAWTHORNE),Narayan DUFF; Bertrand Henriquez MD~ Examination: PA lateral chest 2 views TECHNIQUE: Upright PA lateral chest 2 views Exam date and time: July 08, 2024 1222 hours INDICATIONS: Dizziness fever beginning 3 days ago. FINDINGS: Atelectasis versus early pneumonia left base Mild prominence left ventricle No pulmonary edema IMPRESSION: Atelectasis versus early pneumonia left base Dictated By: Bertrand Henriquez MD Signed By: <Electronically signed by Bertrand Henriquez MD in OV> 07/08/24 1233 Medications / Prescriptions Medications or Prescriptions considered but not ordered:: none Medication administrations:: Medication Administration History Discontinued Medications Sodium Chloride (Ns) 2,517 mls @ 2,517 mls/hr 30 ml/kg infuse over 60 min (2517 ml) IV .Q1H ONE; Protocol Stop: 07/08/24 21:13 Last Admin: 07/08/24 20:32 Dose: 2,517 mls/hr Documented By: UCHE Azithromycin 500 mg/ Sodium (Chloride) 250 mls @ 250 mls/hr IV X1 ONE Stop: 07/08/24 21:13 Last Admin: 07/08/24 21:06 Dose: 250 mls/hr Documented By: UCHE Ceftriaxone Sodium 1,000 mg/ (Sodium Chloride) 50 mls @ 100 mls/hr IV X1 ONE Stop: 07/08/24 21:03 Last Infusion: 07/08/24 21:13 Dose: Infused Documented By: Admin: 07/08/24 20:43 Dose: 100 mls/hr Documented By: UCHE Ibuprofen (Ibuprofen Tab 400 Mg Tablet) 800 mg PO X1 ONE Stop: 07/08/24 12:08 Last Admin: 07/08/24 12:49 Dose: 800 mg Documented By: RADHA Ondansetron HCl (Ondansetron Odt 4 Mg Tabrap) 4 mg PO X1 ONE; Protocol Stop: 07/08/24 12:08 Last Admin: 07/08/24 12:50 Dose: 4 mg Documented By: RADHA see above Consultations Consultation(s) initiated? (list below): No Diagnosis Differential diagnosis abdominal pain: other (pneumonia, sepsis, electrolyte ab normality, dehydration) Most likely diagnosis given after review of the tests above:: see below Admission Indicated Admission indicated?: not indicated Admission Request Was there a request for admission?: No Disposition Plan Disposition Plan: Discharge Discharge Attestation Discharge Attestation: The patient and all family members were given an opportunity to ask questions and understood the discharge instructions. Discharge instructions specifically effects, indications for sooner follow up or return to the emergency department, and the expected course of current diagnosis. Patient condition: Stable Discharge Plan Plan Patient Disposition: HOME (Self Care) Patient condition on transfer: Stable Prescriptions/Referrals Prescriptions/Med Rec: New amoxicillin-pot clavulanate 875-125 mg tablet 1 tab PO BID Qty: 20 0RF No Action atorvastatin 40 mg tablet 40 mg PO QDAY Patient Comments: TAKE 1 TABLET BY MOUTH EVERY DAY amlodipine-benazepril 10-20 mg capsule 1 cap PO QDAY Patient Comments: TAKE 1 CAPSULE BY MOUTH EVERY DAY Referrals: Fidencio Rodriguez MD [Primary Care Provider] - In 1 week Problem List Clinical Impression: Community acquired pneumonia Patient/Caregiver Discharge Instructions Education Materials: ED Pneumonia (Adult) Additional Instructions: 1. Please take antibiotics as prescribed. Stay hydrated with Pedialyte and/or Gatorade. Your repeat lactate level is now normal and I feel comfortable sending you home. You can take [id number] Tylenol 650 mg 3 times a day as needed for pain. Return to the emergency department for worsening symptoms, or any other concerns. Please follow-up with your primary care physician in the next 48 to 72 hours. Print Language: Citizen Of [place] Stand Alone Forms: Jessie Award Info., Patient Portal Info Letter
[2024-07-08] MEDS: SODIUM CHLORIDE 0.9% 2517 ML IV (20:32)
[2024-07-08] MEDS: AZITHROMYCIN INJ 500 MG in SODIUM CHLORIDE 0.9% 250 ML 250 ML 250 MG IV (21:06)
[2024-07-08 21:57] LABS: Lactate (Lactic Acid) 1.5 mMol/L (0.4-2.0)
== END 2024-07-08 23:40 | disposition home or self-care (01) ==
PROVIDERS: Nurse Practitioner Primary Care; Emergency Provider Emergency Medicine; PCP Internal Medicine
DX: J10.00 Influenza due to other identified influenza virus with unspecified type of pneumonia (principal); R00.0 Tachycardia, unspecified
CPT/HCPCS: 36415; 71046; 80053; 81001; 83605; 84145; 85025; 87040; 87086; 87400; 87811; 93005; 96365; 99284; J0456; J0696; J7030; J7050; Q0162; A9270

== ENCOUNTER 2024-10-07 11:11 | Inpatient (IN) | payer MEDICARE, BC, SELFPAY ==
[2024-10-07] VITALS (16 sets, daily range): BP systolic 98–138; BP diastolic 64–90; PULSE 76–153; RESP 17–97; TEMP 36.7–39.4; O2SAT 93–95
--- NOTE | 2024-10-07 11:45 | XR_ITS ---
Examination: PA lateral chest 2 views TECHNIQUE: Upright PA lateral chest 2 views Exam date and time: October 07, 2024 1202 hours Comparison July 08, 2024 INDICATIONS: Fever coughing today. FINDINGS: Early pneumonia posterior basal segment left lower lobe on the lateral view Mild prominence left ventricle Ectatic thoracic aorta IMPRESSION: Early pneumonia posterior basal segment left lower lobe
--- NOTE | 2024-10-07 11:46 | PD.EDRME ---
Rapid Medical Screening Exam [facility] Arrival date/time: 10/07/24 11:11 69-year-old male presents to the emergency department today for complaints of fever abdominal discomfort and dark stools which began this morning Patient noted to be febrile initial sepsis order placed Chief Complaint: Weakness Vital signs: Vital Signs Temperature 99.6 F 10/07/24 11:39 Pulse Rate 102 H 10/07/24 11:39 Respiratory Rate 19 10/07/24 11:39 Blood Pressure 138/84 H 10/07/24 11:39 Pulse Oximetry (%) 95 10/07/24 11:39 Oxygen Delivery Method Room Air 10/07/24 11:39
[2024-10-07 12:13] LABS: Lactate (Lactic Acid) 2.8 mMol/L (0.4-2.0)
[2024-10-07 12:19] LABS: Basophils # (Auto) 0.1 Thou/mm3 (0.0-0.2); Basophils % (Auto) 0 % (0-2.5); Eosinophils % (Auto) 0 % (0-10); Hematocrit 41.1 % (41.0-53.0); Immature Granulocytes % (Auto) 1 % (0-0); Immature Granulocytes Auto 0.13 Thou/mm3 (0.00-0.00); Lymphocytes # (Auto) 0.7 Thou/mm3 (1.0-4.8); Lymphocytes % (Auto) 6 % (10-50); Mean Corpuscular HGB Conc 34.1 g/dl (31.0-37.0); Mean Corpuscular Volume 91 fL (80-100); Monocytes # (Auto) 0.5 Thou/mm3 (0.0-0.8); Monocytes % (Auto) 4 % (0-12); Neutrophils # (Auto) 11.2 Thou/mm3 (1.8-7.7); Neutrophils % (Auto) 89 % (37-80); Nucleated Red Blood Cell # 0.02 Thou/mm3 (0.00-0.00); Nucleated Red Blood Cell % 0 /100 WBC (0); Platelet Count 184 Thou/mm3 (140-440); RDW Standard Deviation 48.5 fL (35.1-43.9); Red Blood Count 4.51 Miln/mm3 (4.50-5.90); White Blood Count 12.7 Thou/mm3 (3.8-10.6)
[2024-10-07 12:34] LABS: Collection Type, Urine Clean Catch
[2024-10-07 12:39] LABS: Alanine Aminotransferase 39 U/L (10-49); Albumin, Serum 4.3 gm/dL (3.4-4.8); Alkaline Phosphatase 107 U/L (46-116); Anion Gap 10 (7-16); Aspartate Amino Transferase 38 U/L (0-34); BUN/Creatinine Ratio 11 Ratio (12-20); Blood Urea Nitrogen 17 mg/dL (9-23); Calcium 9.2 mg/dL (8.3-10.6); Calcium (Corrected) 9.2 mg/dL (8.5-10.1); Carbon Dioxide 20.6 mMol/L (20.0-31.0); Chloride 107 mMol/L (98-107); Creatinine (Component) 1.6 mg/dL (0.6-1.3); Globulin 2.1 gm/dL (2.3-3.5); Glucose 101 mg/dL (74-106); Lipase 42 U/L (12-53); Osmolality,Calculated 277 (275-295); Potassium 3.5 mMol/L (3.4-5.1); Procalcitonin 42.08 ng/ml (0.0-0.49); Sodium 138 mMol/L (136-145); Total Protein 6.4 gm/dL (5.7-8.2); eGFR 46 See Note
--- NOTE | 2024-10-07 12:55 | EKG_ITS ---
[facility] Test Date: 2024-10-07 Pat Name: MANJU GARCIA Department: Room: - Gender: Male Director Work: : 1955 Requested By: Darshan Melton Order Number: [id number] Reading MD: Darshan Melton Measurements Intervals [place] Rate: 160 P: [place]: QRS: -40 QRSD: 84 T: 72 QT: 283 QTc: 463 Interpretive Statements ATRIAL FIBRILLATION WITH RAPID VENTRICULAR RESPONSE LEFT AXIS DEVIATION [QRS AXIS < -30] NONSPECIFIC ST & T-WAVE ABNORMALITY CRITICAL TEST RESULT Compared to ECG 07/08/2024 11:51:19 Left-axis deviation now present T-wave abnormality now present Sinus tachycardia no longer present Left anterior fascicular block no longer present /store/S0/[id number]/[id number]
--- NOTE | 2024-10-07 12:56 | XR_ITS ---
Examination: CT chest, without intravenous contrast. CT abdomen, without intravenous contrast. CT pelvis, without intravenous contrast. 2-D sagittal and coronal reconstructions. 3-D reconstructions. Date and time of exam:October 07, 2024 1321 hours INDICATIONS: Sepsis alert today, onset abdominal pain and fever today CTDI vol (mgy) 8.24 DLP (MGycm)662 Technique: Multiple CT images, 3.0 mm slice thickness, obtained chest, abdomen, pelvis, with the high-resolution 64 slice scanner.. Sagittal and coronal 2-D reconstructions are obtained. 3-D reconstructions Low dose protocols were performed. One or more of the following dose reduction techniques were used; automated exposure control, adjustment of the mA and/or KV according to patient size, use of iterative reconstruction technique. Findings: No thoracic aortic aneurysm dilatation Pulmonary artery segments are not enlarged. No paratracheal tracheobronchial or bronchopulmonary adenopathy Mild pneumonia right base No pulmonary edema Fatty infiltration throughout the liver No gallstones Spleen not enlarged No pancreatic or adrenal mass Absent right kidney Left perinephric stranding 10 mm upper pole left renal cyst 1 mm lower pole left renal calculus axial image 197 No hydronephrosis or ureteral calculi Aorta normal size Normal appendix Colonic diverticulosis Mild acute sigmoid diverticulitis axial image 272 through 280, no peridiverticular abscess Bladder intact Prostate is irregular in contour and enlarged AP dimension 5.6 cm Fat-containing left inguinal hernia Severe osteopenia IMPRESSION: Mild pneumonia right base 1 mm lower pole nonobstructing left renal calculus Left perinephric stranding consider left urinary tract infection Mild acute sigmoid diverticulitis, no peridiverticular abscess Significant prostatomegaly prostate irregular in contour
[2024-10-07] MEDS: ACETAMINOPHEN 500 MG TABLET 1000 MG PO (12:57)
[2024-10-07] MEDS: cefTRIAXone/D5w 1gm IV premix 1 GM/50 ML BAG IV (13:04)
[2024-10-07] MEDS: SODIUM CHLORIDE 0.9% 1000 ML 1,000 ML 999 ML IV ×2 (13:04→13:58)
--- NOTE | 2024-10-07 13:10 | PC.NURSE ---
PT TAKEN TO CT.
[2024-10-07 13:25] LABS: Bilirubin,Urine Negative (Negative); Blood,Urine Negative (Negative); Clarity,Urine Clear (Clear/Hazy); Color,Urine Lt-Yellow (Lt Yel-Yel); Glucose, Urine Negative (Negative); Ketones,Urine Negative (Negative); Leukocyte Esterase,Urine Negative (Negative); Nitrite,Urine Negative (Negative); Protein,Urine Trace (Neg - Trace); RBC,Urine 2 /hpf (0-3); Specific Gravity,Urine 1.016 (1.001-1.035); Squamous Epithelial Cell,Urine < 1 /hpf (0-5); Urobilinogen,Urine Negative mg/dL (0.0-1.0); WBC,Urine 2 /hpf (0-5)
--- NOTE | 2024-10-07 13:53 | PD.EDADULT ---
ED General RME/HPI General Chief complaint: Weakness Stated complaint: WEAKNESS/ABD PAIN/DIARRHA/FEVER 101.0 STARTED AM Time Seen by Provider: 10/07/24 12:18 Arrival date/time: 10/07/24 11:11 CC: Weakness with abdominal pain HPI onset this morning. Denies cough, took no OTC medicines this morning. Patient denies chest pain shortness of breath however initial exam patient was noted to be tachypneic and warm to touch. Initial vital signs show temperature of 103 with tachypnea and tachycardia sepsis was initiated. RME / HPI RME / HPI narrative: 10/07/24 11:11 69-year-old male presents to the emergency department today for complaints of fever abdominal discomfort and dark stools which began this morning Patient noted to be febrile initial sepsis order placed Related Data Home Medications ?Medication ?Instructions ?Recorded ?Confirmed amlodipine 10 mg-benazepril 20 mg 1 cap PO QDAY 05/17/24 05/17/24 capsule Held on 05/18/24. Instructions: Resume on 06/01/24. Holding combo (amlodipine-benazepril) due to TACO. Repeat basic metabolic panel, and if kidney function improves, have PCP resume amlodipine-benazepril atorvastatin 40 mg tablet 40 mg PO QDAY 05/17/24 05/17/24 Previous Rx's ?Medication ?Instructions ?Recorded amoxicillin 875 mg-potassium 1 tab PO BID #20 tabs 07/08/24 clavulanate 125 mg tablet Allergies Allergy/AdvReac Type Severity Reaction Status Date / Time No Known Allergies Allergy Verified 10/07/24 11:16 Review of Systems Review of Systems Narrative Review of Systems: GEN: + fever, no chills, no weight loss EYES: No discharge, no visual changes, no pain HEENT: No ear pain, no congestion, no sore throat PULM: No shortness of breath, no cough, no congestion CV: No chest pain, no dyspnea on exertion, no palpitations GI: No nausea, no vomiting, no diarrhea, + pain, no constipation : No frequency, no urgency, no dysuria MUSC/SKEL: No joint pain, no back pain SKIN: No rash PSYCH: No hallucinations, no depression HEME/LYMPH: No easy bleeding or bruising tendencies NEURO: No weakness, no headache Past Medical History Past Medical History CARDIAC: Negative Cardiac Disorders or Congestive Heart Failure RESPIRATORY: Negative Chronic Obstructive Pulmonary Disease (COPD) or Asthma GENITOURINARY: Negative Renal Disease ENDOCRINE: Negative Diabetes Mellitus Type 1 or Diabetes Mellitus Type 2 HEMATOLOGIC: Negative Sickle Cell Disease Social History SMOKING STATUS: Never smoker ED Exam Narrative Physical exam: [General: Mild discomfort but not in any acute distress Head normocephalic HEENT: Eyes pupils are PERRLA EOMs are intact no injected conjunctiva, mouth pink dry membranes uvula is midline swallow symmetrical phonation is normal. Nose no rhinorrhea although the subsystems of HEENT are within acceptable limits Neck is supple nontender no JVD no edema Chest equal chest rise nontender to palpation Respiratory: Tachypneic, clear to auscultation no wheezes crackles or rubs CV: Rate rhythm is regular to irregular intermittently tachycardic. No murmurs rubs or clicks Abdomen is distended secondary to body habitus soft nontender no masses positive bowel sounds all 4 quadrants Back: No CVA tenderness no spinous process tenderness from cervical spine thoracic and lumbar spine Skin: Intact no petechiae rash induration ulceration or crepitus Extremities: Moving all extremity against resistance cap refill less than 2 seconds neurosensory intact. No lower extremity edema. Neuro: Awake alert oriented x3 Glascow coma 15 no focal deficits] Course Course Course Narrative: This patient has a concomitant of items including sepsis pneumonia influenza diverticulitis, and with a highly variable heart rate unconcerned about this patient being stable enough to be sent home therefore spoke with the resident for Dr. Muhammad who request that I hold the labetalol initially at order and start the patient on Lopressor. Patient will be admitted for A-fib new onset, sepsis, pneumonia, influenza Quality Measures none Orders Category Date Time Status Patient Condition Routine Admission 10/07/24 14:54 Ordered Bedside COVID-19 Antigen Test NOW Care 10/07/24 11:45 Active Bedside Influenza A&B Antigen Test NOW Care 10/07/24 11:45 Completed EKG (ED ONLY) *Do not use* NOW Care 10/07/24 12:55 Completed Notify provider NEEDED Care 10/07/24 14:54 Active Saline [Insert IV] NOW Care 10/07/24 12:[address] chest abdomen pelvis wo Stat Exams 10/07/24 12:56 Completed EKG (ED Only) Stat Exams 10/07/24 12:55 Draft XR chest 2V Stat Exams 10/07/24 11:45 Completed Blood Culture (Lab) Stat Lab 10/07/24 11:50 Received CBC Stat Lab 10/07/24 11:50 Completed Comprehensive Metabolic Panel Stat Lab 10/07/24 11:50 Completed Lactate (Lactic Acid) Stat Lab 10/07/24 11:50 Completed Lactic Acid, 3 HR Stat Lab 10/07/24 15:30 Completed Lipase Stat Lab 10/07/24 11:50 Completed Procalcitonin Stat Lab 10/07/24 11:50 Completed Troponin I Stat Lab 10/07/24 11:50 Completed Urinalysis Stat Lab 10/07/24 12:27 Completed Urine Culture Stat Lab 10/07/24 12:27 Received Acetaminophen Tab [Tylenol ES Tab] Med 10/07/24 11:45 Discontinued 1,000 mg PO X1 ONE Labetalol IV [Trandate IV] Med 10/07/24 14:09 Discontinued 20 mg IVP X1 ONE Metoprolol Tartrate Inj [Lopressor Inj] Med 10/07/24 14:13 Discontinued 2 mg IVP X1 ONE Metoprolol Tartrate Inj [Lopressor Inj] Med 10/07/24 14:53 Discontinued 2.5 mg IVP X1 ONE Sodium Chloride 0.9% 1000 ml [Ns] 1,000 ml Med 10/07/24 12:56 Discontinued IV 999 mls/hr Sodium Chloride 0.9% 1000 ml [Ns] 1,000 ml Med 10/07/24 12:56 Discontinued IV 999 mls/hr Sodium Chloride 0.9% 500 ml [Ns] 500 ml Med 10/07/24 12:57 Discontinued IV 999 mls/hr cefTRIAXone/D5w 1gm IV premix [Rocephin/D5w 1gm IV Med 10/07/24 12:17 Discontinued premix] 1 gm in 50 ml IV X1 Code Status Routine Oth 10/07/24 14:54 Ordered Vital Signs Vital signs: Vital Signs Temperature 99.6 F 10/07/24 11:39 Pulse Rate 102 H 10/07/24 11:39 Respiratory Rate 19 10/07/24 11:39 Blood Pressure 138/84 H 10/07/24 11:39 Pulse Oximetry (%) 95 10/07/24 11:39 Oxygen Delivery Method Room Air 10/07/24 11:39 Discharge Plan Plan Patient Disposition: Admit Acute Care w/in Hospital Patient condition on transfer: Stable Problem List Clinical Impression: Influenza A, Influenza B, Pneumonia, Atrial fibrillation with RVR, Diverticulitis, Sepsis CAROL/SEGUN Supervising Physician RADHA Supervising Physician: Darshan VILLANUEVA Clinical Information Provided by: patient Medical Records reviewed [facility] Meds/Rx considered, not ordered None Labs/Rad/Tests considered, not ordered None EKG Interpretation EKG #1: EKG Interpretation: EKG performed at 1315 showed ventricular rate of 160 QRS of 84 QTc of 372 A-fib with RVR. Second EKG performed at 1343 shows a ventricular rate of 123 LA interval 197 QRS of 93 QTc of 377 this 1 shows tachycardia with occasional supraventricular complexes. Compared to an old EKG from July 2024 the A-fib is a new finding. Labs Lab(s) Interpretation(s): CBC shows mild leukocytosis of 12.7 no anemia thrombocytopenia no bandemia CMP shows no significant electrolyte imbalances creatinine is elevated at 1.6 BUN is normal note patient has always had a elevated creatinine. Lactic acid of 2.8 T. bili within acceptable limits AST is elevated no other transaminitis. Lipase is normal Urine is negative Procalcitonin at 42.08 Imaging Imaging interpretation: Interpreted by me Imaging Interpretation(s): CT shows mild right base pneumonia sigmoid diverticulitis and prostamegaly as interpreted by me read by radiology. Medication Administration(s) Medication Administration History Acetaminophen (Acetaminophen Supp 650 Mg Supp) 650 mg LA Q6HR PRN PRN Reason: Fever > 100.5 Stop: 11/06/24 15:29 Acetaminophen (Acetaminophen Supp 650 Mg Supp) 650 mg LA Q6H PRN PRN Reason: PAIN SCALE 1-3 (mild Stop: 11/06/24 15:29 Sodium Chloride (Ns) 1,000 mls @ 100 mls/hr IV .Q10H DIPAK Stop: 11/06/24 15:29 Last Admin: 10/07/24 18:04 Dose: 100 mls/hr Documented By: VG Piperacillin/Tazobactam/Dextrose (Zosyn) 3.375 gm in 50 mls @ 12.5 mls/hr IV Q8HR DIPAK; Protocol Stop: 10/14/24 21:59 Heparin Sodium/Dextrose (Heparin In D5w Ivpb) 25,000 unit in 250 mls @ 9.798 mls/hr IV .Q24H DIPAK; Protocol Stop: 10/21/24 15:59 Last Admin: 10/07/24 17:31 Dose: 12 units/kg/hr, 9.798 mls/hr Documented By: RADHA Co-signed By: AGUSTIN Metoprolol Tartrate (Metoprolol Tartrate 25 Mg Tablet) 25 mg PO BID DIPAK Stop: 11/06/24 15:54 Last Admin: 10/07/24 16:12 Dose: 25 mg Documented By: RADHA Morphine Sulfate (Morphine Sulf Inj 10 Mg/Ml Vial) 2 mg IVP Q4H PRN PRN Reason: PAIN SCALE 7-10 (Severe Stop: 10/12/24 15:29 Ondansetron HCl (Ondansetron Inj 2 Mg/Ml Inj 2 Ml) 4 mg IV Q6H PRN; Protocol PRN Reason: NAUSEA OR VOMITING Stop: 11/06/24 15:29 Oseltamivir Phosphate (Oseltamivir 75 Mg Capsule) 75 mg PO BID DIPAK Stop: 10/14/24 20:59 Last Admin: 10/07/24 20:22 Dose: 75 mg Documented By: MIGDALIA Pantoprazole Sodium (Pantoprazole Inj 40 Mg Vial) 40 mg IVP QDAY DIPAK Stop: 11/06/24 15:44 Last Admin: 10/07/24 16:12 Dose: 40 mg Documented By: RADHA Pharmacy Consult (Pharmacy Renal Dose Adjustment 1 Ea) 1 each XX PRN PRN PRN Reason: CONSULT Stop: 11/06/24 15:41 Discontinued Medications Acetaminophen (Acetaminophen 500 Mg Tablet) 1,000 mg PO X1 ONE Stop: 10/07/24 11:46 Last Admin: 10/07/24 12:57 Dose: 1,000 mg Documented By: RADHA Heparin Sodium (Porcine) (Heparin Sod Inj 5000 Unit/Ml Vial) 4,900 unit 60 unit/kg (4900 unit) IV X1 ONE; Protocol Stop: 10/07/24 15:49 Last Admin: 10/07/24 17:30 Dose: 4,900 unit Documented By: RADHA Co-signed By: AGUSTIN Ceftriaxone Sodium/Dextrose (Rocephin/D5w 1gm Iv Premix) 1 gm in 50 mls @ 100 mls/hr IV X1 ONE Stop: 10/07/24 12:46 Last Infusion: 10/07/24 13:58 Dose: Infused Documented By: Admin: 10/07/24 13:04 Dose: 100 mls/hr Documented By: VG Sodium Chloride (Ns) 1,000 mls @ 999 mls/hr IV .Q1H1M ONE Stop: 10/07/24 13:56 Last Infusion: 10/07/24 13:58 Dose: Infused Documented By: Admin: 10/07/24 13:04 Dose: 999 mls/hr Documented By: VG Sodium Chloride (Ns) 1,000 mls @ 999 mls/hr IV .Q1H1M ONE Stop: 10/07/24 13:56 Last Infusion: 10/07/24 16:27 Dose: Infused Documented By: Admin: 10/07/24 13:58 Dose: 999 mls/hr Documented By: VG Sodium Chloride (Ns) 500 mls @ 999 mls/hr IV .Q31M ONE Stop: 10/07/24 13:27 Last Infusion: 10/07/24 18:00 Dose: Infused Documented By: Admin: 10/07/24 16:26 Dose: 999 mls/hr Documented By: VG Potassium Chloride (Kcl Ivpb) 10 meq in 100 mls @ 100 mls/hr IV Q1H DIPAK Stop: 10/07/24 17:38 Last Admin: 10/07/24 17:44 Dose: 100 mls/hr Documented By: Infusion: 10/07/24 17:33 Dose: Infused Documented By: Admin: 10/07/24 16:20 Dose: 100 mls/hr Documented By: VG Piperacillin/Tazobactam/Dextrose (Zosyn) 3.375 gm in 50 mls @ 100 mls/hr IV X1 ONE Stop: 10/07/24 16:14 Last Infusion: 10/07/24 17:08 Dose: Infused Documented By: Admin: 10/07/24 16:19 Dose: 100 mls/hr Documented By: VG Labetalol HCl (Labetalol Inj 5 Mg/Ml Vial 20 Ml) 20 mg IVP X1 ONE Stop: 10/07/24 14:10 Last Admin: 10/07/24 15:31 Dose: Not Given Documented By: VG Non-Admin Reason: Discontinued Metoprolol Tartrate (Metoprolol Tartrate Inj 1 Mg/Ml Amp 5 Ml) 2 mg IVP X1 ONE Stop: 10/07/24 14:14 Last Admin: 10/07/24 14:37 Dose: 2 mg Documented By: LF Metoprolol Tartrate (Metoprolol Tartrate Inj 1 Mg/Ml Amp 5 Ml) 2.5 mg IVP X1 ONE Stop: 10/07/24 14:54 Last Admin: 10/07/24 15:46 Dose: 2.5 mg Documented By: VG Diagnosis Differential Diagnosis ED Complaint MDM: Pneumonia diverticulitis sepsis influenza
[2024-10-07] MEDS: METOPROLOL TARTRATE INJ 1 MG/ML AMP 5 ML 2 MG IVP (14:37)
[2024-10-07 14:53] LABS: Troponin I < 0.020 ng/mL (0.0-0.045)
[2024-10-07 15:09] LABS: Reflex Lactate? Y
[2024-10-07 15:45] LABS: Lactic Acid, 3 HR 2.1 mMol/L (0.4-2.0)
[2024-10-07] MEDS: METOPROLOL TARTRATE INJ 1 MG/ML AMP 5 ML 2.5 MG IVP (15:46)
--- NOTE | 2024-10-07 15:58 | PD.RESHP ---
Documentation for date of: 10/07/24 HPI History of Present Illness Chief complaint: Generalized weakness for 12 hours before admission History of present illness: HPI:A 69-year-old male patient with past medical history of hypertension, hypercholesteremia, history of renal cell carcinoma status post right nephrectomy, diverticulosis, was brought to the ED due to acute onset of generalized weakness and mild abdominal discomfort that started today at 4:30 AM. Patient reported that he tried to vomit however he was not able to vomit. Patient also reported 5 episodes of defecation that was regular stool with no blood or mucus. He mentions that he has some mild abdominal discomfort but no pain. On questioning he denied any dysuria, frequency, or change in color of urine. Patient denied any fever or chills, denied any cough or shortness of breath, denied any tinnitus, diplopia, dizziness, chest pain, or palpitation. He denied any recent history of travel or weight loss. Denied any history of sick contact. Home medications: Amlodipine, atorvastatin ED course:At the ED patient vital signs showed blood pressure of 138/84, pulse rate of 140, respiratory rate of 19, temperature of 100.9, was saturating well on room air. Labs showed CBC WBC of 12.7, hemoglobin stable at 14, potassium was 3.5, serum creatinine was found to be 1.6 his baseline serum creatinine usually however between 2.6-2.2. eGFR 46, lactic acid of 2.9, procalcitonin was found to be 42.08, urinalysis was clean. Serology screening showed positive result of influenza A and influenza B however negative for COVID. EKG showed atrial fibrillation with rapid ventricular response and left axis deviation. Chest/abdomen/pelvis CT scan without contrast showed mild pneumonia of the right base, 1 mm lower pole nonobstructing left renal calculus, and also showed left perinephric stranding most likely secondary to UTI. It also showed mild acute sigmoid diverticulitis with no peridiverticular abscess. CT also showed significant prostatomegaly with prostatic irregular contour. At the ED patient was given metoprolol 2 mg IV x 1 followed by another dose of 2.5 which brought his heart rate from 145-108, he was also given 2.5 L of fluids bolus as per sepsis protocol and was given a single dose of ceftriaxone. PMH: As above PSX: Right nephrectomy PFX: Son with leukemia Social hx: Alcohol: Denied Tobacco: Denied Illicit drugs: Denied Allergies: No known allergies Review of Systems Review of Systems Systems Reviewed: All systems reviewed, normal except as documented Exam Vital Signs Temp Pulse Resp BP Pulse Ox O2 Del Method 99.4 F 119 H 18 106/64 93 L Room Air 10/07/24 15:42 10/07/24 15:46 10/07/24 15:42 10/07/24 15:46 10/07/24 15:42 10/07/24 15:42 Narrative Exam GEN: AOx3, able to speak full sentences HEENT: NC/AC, oral mucosa moist, neck supple CVS: RRR, S1-S2 present, no murmurs appreciated RESP: CTAB GI: soft,non distended, mild abdominal discomfort on palpation,, NBS MSK: able to move all 4 limbs, no lower extremity edema SKIN: warm and dry MEETING/EVENT PLANNER: CN II-XII and Sensation grossly intact. Results: Labs 10/07/24 11:50 10/07/24 11:50 Labs: Short CBC 10/07/24 Range/Units 11:50 WBC 12.7 H (3.8-10.6) Thou/mm3 Hgb 14.0 (13.5-16.0) g/dL Hct 41.1 (41.0-53.0) % Plt Count 184 (140-440) Thou/mm3 BMP 10/07/24 11:50 Sodium 138 Potassium 3.5 Chloride 107 Carbon Dioxide 20.6 BUN 17 Creatinine 1.6 H Glucose 101 Calcium 9.2 Cardiac Enzymes 10/07/24 Range/Units 11:50 Troponin I < 0.020 (0.0-0.045) ng/mL Liver Function 10/07/24 Range/Units 11:50 Total Bilirubin 1.0 (0.3-1.2) mg/dL AST 38 H (0-34) U/L ALT 39 (10-49) U/L Alkaline Phosphatase 107 (46-116) U/L Albumin 4.3 (3.4-4.8) gm/dL Urine 10/07/24 Range/Units 12:27 Urine Color Lt-Yellow (Lt Yel-Yel) Urine Clarity Clear (Clear/Hazy) Urine pH 6.0 (5.0-7.0) Ur Specific [place] 1.016 (1.001-1.035) Urine Protein Trace (Neg - Trace) Urine Glucose (UA) Negative (Negative) Quality Measures Quality Measures VTE prophylaxis Advance care planning discussed with:: patient and child Medications Home Medications and Allergies Home Medications ?Medication ?Instructions ?Recorded ?Confirmed ?Type amlodipine 10 mg-benazepril 20 mg 1 cap PO QDAY 05/17/24 05/17/24 History capsule Held on 05/18/24. Instructions: Resume on 06/01/24. Holding combo (amlodipine-benazepril) due to TACO. Repeat basic metabolic panel, and if kidney function improves, have PCP resume amlodipine-benazepril atorvastatin 40 mg tablet 40 mg PO QDAY 05/17/24 05/17/24 History Allergies Allergy/AdvReac Type Severity Reaction Status Date / Time No Known Allergies Allergy Verified 10/07/24 11:16 Visit Medications Acetaminophen (Acetaminophen Supp 650 Mg Supp) 650 mg [place] Q6HR PRN PRN Reason: Fever > 100.5 Stop: 11/06/24 15:29 Acetaminophen (Acetaminophen Supp 650 Mg Supp) 650 mg OK Q6H PRN PRN Reason: PAIN SCALE 1-3 (mild Stop: 11/06/24 15:29 Heparin Sodium (Porcine) (Heparin Sod Inj 5000 Unit/Ml Vial) 4,900 unit 60 unit/kg (4900 unit) IV X1 ONE; Protocol Stop: 10/07/24 15:49 Sodium Chloride (Ns) 1,000 mls @ 100 mls/hr IV .Q10H DIPAK Stop: 11/06/24 15:29 Piperacillin/Tazobactam/Dextrose (Zosyn) 3.375 gm in 50 mls @ 12.5 mls/hr IV Q8HR DIPAK; Protocol Stop: 10/14/24 21:59 Potassium Chloride (Kcl Ivpb) 10 meq in 100 mls @ 100 mls/hr IV Q1H DIPAK Stop: 10/07/24 17:38 Piperacillin/Tazobactam/Dextrose (Zosyn) 3.375 gm in 50 mls @ 100 mls/hr IV X1 ONE Stop: 10/07/24 16:14 Heparin Sodium/Dextrose (Heparin In D5w Ivpb) 25,000 unit in 250 mls @ 9.798 mls/hr IV .Q24H DIPAK; Protocol Stop: 10/21/24 15:59 Metoprolol Tartrate (Metoprolol Tartrate 25 Mg Tablet) 25 mg PO BID [facility] Stop: 11/06/24 15:54 Morphine Sulfate (Morphine Sulf Inj 10 Mg/Ml Vial) 2 mg IVP Q4H PRN PRN Reason: PAIN SCALE 7-10 (Severe Stop: 10/12/24 15:29 Ondansetron HCl (Ondansetron Inj 2 Mg/Ml Inj 2 Ml) 4 mg IV Q6H PRN; Protocol PRN Reason: NAUSEA OR VOMITING Stop: 11/06/24 15:29 Oseltamivir Phosphate (Oseltamivir 75 Mg Capsule) 75 mg PO BID [facility] Stop: 10/14/24 20:59 Pantoprazole Sodium (Pantoprazole Inj 40 Mg Vial) 40 mg IVP QDAY DIPAK Stop: 11/06/24 15:44 Pharmacy Consult (Pharmacy Renal Dose Adjustment 1 Ea) 1 each XX PRN PRN PRN Reason: CONSULT Stop: 11/06/24 15:41 Discontinued Medications Acetaminophen (Acetaminophen 500 Mg Tablet) 1,000 mg PO X1 ONE Stop: 10/07/24 11:46 Last Admin: 10/07/24 12:57 Dose: 1,000 mg Ceftriaxone Sodium/Dextrose (Rocephin/D5w 1gm Iv Premix) 1 gm in 50 mls @ 100 mls/hr IV X1 ONE Stop: 10/07/24 12:46 Last Infusion: 10/07/24 13:58 Dose: Infused Sodium Chloride (Ns) 1,000 mls @ 999 mls/hr IV .Q1H1M ONE Stop: 10/07/24 13:56 Last Infusion: 10/07/24 13:58 Dose: Infused Sodium Chloride (Ns) 1,000 mls @ 999 mls/hr IV .Q1H1M ONE Stop: 10/07/24 13:56 Last Admin: 10/07/24 13:58 Dose: 999 mls/hr Sodium Chloride (Ns) 500 mls @ 999 mls/hr IV .Q31M ONE Stop: 10/07/24 13:27 Labetalol HCl (Labetalol Inj 5 Mg/Ml Vial 20 Ml) 20 mg IVP X1 ONE Stop: 10/07/24 14:10 Last Admin: 10/07/24 15:31 Dose: Not Given Metoprolol Tartrate (Metoprolol Tartrate Inj 1 Mg/Ml Amp 5 Ml) 2 mg IVP X1 ONE Stop: 10/07/24 14:14 Last Admin: 10/07/24 14:37 Dose: 2 mg Metoprolol Tartrate (Metoprolol Tartrate Inj 1 Mg/Ml Amp 5 Ml) 2.5 mg IVP X1 ONE Stop: 10/07/24 14:54 Last Admin: 10/07/24 15:46 Dose: 2.5 mg Assessment & Plan Plan Summary:A 69-year-old male patient with past medical history of hypertension, hypercholesteremia, history of renal cell carcinoma status post right nephrectomy, diverticulosis, was brought to the ED due to acute onset of generalized weakness and mild abdominal discomfort that started today at 4:30 AM. Patient was admitted for sepsis secondary to pneumonia/diverticulitis/UTI. #Sepsis most likely secondary to diverticulitis #Diverticulitis #Influenza pneumonia with possible secondary bacterial infection #Left pyelonephritis versus perinephric infection Patient presented with generalized weakness, for episodes of defecation of normal stool within 12 hours, 138/84, pulse rate of 140, respiratory rate of 19, temperature of 100.9, was saturating well on room air. Labs showed CBC WBC of 12.7, hemoglobin stable at 14, CT scan showed sigmoid diverticulitis with no peridiverticular abscess. Lactic acid was 2.8. Plan ? Keep the patient n.p.o. ? Admit patient to telemetry ? Start the patient on Zosyn ? Start the patient on IV fluid 100 mL/h NS ? Continue close monitoring for diverticulitis complications ? Follow-up on the urine culture and blood culture ? Start the patient on Tamiflu ? Sent for MRSA, Legionella screening ? Put patient on airborne and droplet precautions #New onset A-fib with RVR #History of hypertension On presentation patient heart rate was 145, EKG showed A-fib with RVR Patient denied any history of A-fib with RVR or any heart problems. [id number] was 2 Has bled of 5 Plan ? Discussion with the patient regarding risk and benefits from tubulation was contacted, patient agreed on the anticoagulation prophylaxis ? Continue the patient on metoprolol tartrate 25 mg p.o. twice daily ? Heparin drip ACS protocol dose ? Ordered echocardiogram ? Consider consulting cardiology if needed ? Hold home medications #CKD #History of right nephrectomy secondary to renal cell carcinoma #Prostatomegaly with irregular contour Patient denied his knowledge of his chronic kidney disease. Patient denied any urine tract symptoms Plan ? Will continue aggressive antibiotic therapy ? Follow-up with any washroom operator regularly on discharge ? Strict in and out every shift ? PSA screening ? Avoid nephrotoxic medications ? Pharmacy to dose medications Hospital Maintenance: FEN: N.p.o. DVT ppx: Heparin GI ppx: Protonix IV lines: PIV [place]: None Code status: Full code Dispo: Telemetry - Patient's plan and care discussed with my attending, Dr. Jb Lange MD Internal Medicine PGY-2
[2024-10-07] MEDS: PANTOPRAZOLE INJ 40 MG VIAL IVP (16:12)
[2024-10-07] MEDS: METOPROLOL TARTRATE 25 MG TABLET PO ×2 (16:12→22:26)
[2024-10-07] MEDS: PIPER/TAZO 3.375 GM PREMIX 3.375 GM/50 ML BAG IV ×2 (16:19→22:19)
[2024-10-07] MEDS: POTASSIUM CHL 10 mEq IVPB 10 MEQ/100 ML BAG 100 MEQ IV ×2 (16:20→17:44)
[2024-10-07] MEDS: SODIUM CHLORIDE 0.9% 500 ML 500 ML 999 ML IV (16:26)
[2024-10-07 16:39] LABS: Partial Thromboplastin Time 30.2 Seconds (22.0-36.0)
[2024-10-07] MEDS: HEPARIN SOD INJ 5000 UNIT/ML VIAL 4900 UNIT IV (17:30)
[2024-10-07] MEDS: Heparin/D5w 25K 250 ML Ivpb 25,000 UNIT/250 ML BAG 9.798 UNIT IV (17:31)
[2024-10-07] MEDS: SODIUM CHLORIDE 0.9% 1000 ML 1,000 ML 100 ML IV (18:04)
[2024-10-07] MEDS: OSELTAMIVIR 75 MG CAPSULE PO (20:22)
[2024-10-07 22:49] LABS: Troponin I 0.024 ng/mL (0.0-0.045)
[2024-10-08] VITALS (9 sets, daily range): BP systolic 134–150; BP diastolic 75–90; PULSE 69–82; RESP 17–95; TEMP 36.7–37.7; O2SAT 95
[2024-10-08 00:04] LABS: Partial Thromboplastin Time 70.3 Seconds (22.0-36.0)
[2024-10-08] MEDS: SODIUM CHLORIDE 0.9% 1000 ML 1,000 ML 100 ML IV ×2 (03:35→12:18)
[2024-10-08] MEDS: PIPER/TAZO 3.375 GM PREMIX 3.375 GM/50 ML BAG IV ×3 (05:45→22:01)
[2024-10-08 06:22] LABS: Basophils % (Auto) 0 % (0-2.5); Eosinophils # (Auto) 0.1 Thou/mm3 (0.0-0.5); Eosinophils % (Auto) 1 % (0-10); Hematocrit 37.1 % (41.0-53.0); Hemoglobin 12.6 g/dL (13.5-16.0); Immature Granulocytes % (Auto) 1 % (0-0); Immature Granulocytes Auto 0.08 Thou/mm3 (0.00-0.00); Lymphocytes # (Auto) 0.8 Thou/mm3 (1.0-4.8); Lymphocytes % (Auto) 6 % (10-50); Mean Corpuscular Hemoglobin 31.3 pg (25.0-35.0); Mean Corpuscular Volume 92 fL (80-100); Monocytes # (Auto) 0.6 Thou/mm3 (0.0-0.8); Monocytes % (Auto) 5 % (0-12); Neutrophils # (Auto) 11.4 Thou/mm3 (1.8-7.7); Neutrophils % (Auto) 88 % (37-80); Nucleated Red Blood Cell % 0 /100 WBC (0); Platelet Count 152 Thou/mm3 (140-440); RDW Standard Deviation 51.8 fL (35.1-43.9); Red Blood Count 4.03 Miln/mm3 (4.50-5.90)
[2024-10-08 06:35] LABS: Prostate Specific Antigen 6.41 ng/mL (0-4.00)
[2024-10-08 06:47] LABS: INR 1.1 (0.9-1.3); Partial Thromboplastin Time 51.7 Seconds (22.0-36.0); Prothrombin Time 11.9 Seconds (9.0-12.2)
[2024-10-08 07:06] LABS: Alanine Aminotransferase 29 U/L (10-49); Albumin, Serum 3.6 gm/dL (3.4-4.8); Albumin/Globulin Ratio 1.8 (1.2-2.2); Alkaline Phosphatase 85 U/L (46-116); Anion Gap 12 (7-16); Aspartate Amino Transferase 26 U/L (0-34); BUN/Creatinine Ratio 9 Ratio (12-20); Bilirubin,Total 1.3 mg/dL (0.3-1.2); Blood Urea Nitrogen 12 mg/dL (9-23); Calcium 8.4 mg/dL (8.3-10.6); Calcium (Corrected) 8.7 mg/dL (8.5-10.1); Chloride 111 mMol/L (98-107); Creatinine (Component) 1.4 mg/dL (0.6-1.3); Estimated Creatinine Clearance 49.3 mL/min (>60); Glucose 96 mg/dL (74-106); Magnesium 1.8 mg/dL (1.6-2.6); Osmolality,Calculated 282 (275-295); Phosphorous 2.1 mg/dL (2.4-5.1); Potassium 3.4 mMol/L (3.4-5.1); Sodium 142 mMol/L (136-145); Total Protein 5.6 gm/dL (5.7-8.2); eGFR 54 See Note
[2024-10-08] MEDS: PANTOPRAZOLE INJ 40 MG VIAL IVP (08:41)
[2024-10-08] MEDS: OSELTAMIVIR 75 MG CAPSULE PO ×2 (08:41→20:17)
[2024-10-08] MEDS: METOPROLOL TARTRATE 25 MG TABLET PO ×2 (08:41→20:17)
[2024-10-08] MEDS: POTASSIUM CHL 10 mEq IVPB 10 MEQ/100 ML BAG 100 MEQ IV ×4 (10:29→14:55)
--- NOTE | 2024-10-08 11:08 | PC.NURSE ---
report given to Adolfo peralta tp room [id number]
[2024-10-08] MEDS: SOD PHOS ADDITIVE 15 MMOL in SODIUM CHLORIDE 0.9% 250 ML 250 ML 62.5 MMOL IV (13:22)
--- NOTE | 2024-10-08 14:13 | PD.RESPRO ---
Documentation for date of: 10/08/24 Subjective Subjective Interval history: Patient was seen and examined at bedside, patient reported significant improvement of his symptoms had only 1 bowel movement this night. Denied any cough or shortness of breath and denied any chest pain or palpitation. His vitals today was within normal limits no spikes of fever, WBC went little bit up to 30.6 however hemoglobin stable, his TACO is improving today his serum creatinine went down to 1.4. His T. bili Jackson mildly elevated from 1.0-1.3 however we will keep monitoring. His lab also showed mild elevation of PSA to 6.4 we recommended patient to follow-up in outpatient settings. Patient continued to be on heparin and metoprolol. The plan is if he tolerated feeding well we will switch from heparin to oral anticoagulation before discharge and set him up with oral antibiotics. Exam Vital Signs Temp Pulse Resp BP Pulse Ox O2 Del Method 98.4 F 81 17 143/75 H 95 Room Air 10/08/24 12:00 10/08/24 12:00 10/08/24 12:00 10/08/24 12:00 10/08/24 12:00 10/08/24 12:00 Narrative Exam GEN: AOx3, able to speak full sentences HEENT: NC/AC, oral mucosa moist, neck supple CVS: RRR, S1-S2 present, no murmurs appreciated RESP: CTAB GI: soft,non distended, mild abdominal discomfort on palpation, NBS MSK: able to move all 4 limbs, no lower extremity edema SKIN: warm and dry SURVEYOR: CN II-XII and Sensation grossly intact. Objective Labs 10/08/24 04:57 10/08/24 04:57 Labs: Laboratory Results - last 24 hr 10/07/24 10/07/24 10/07/24 11:50 15:30 16:09 WBC RBC Hgb Hct MCV MCH MCHC RDW Std Deviation Plt Count Neut % (Auto) Lymph % (Auto) [place] % (Auto) Eos % (Auto) Baso % (Auto) Neut # (Auto) Lymph # (Auto) [place] # (Auto) Eos # (Auto) Baso # (Auto) Immature Gran # (Auto) Absolute Nucleated RBC Immature Gran % Nucleated RBC % PT INR APTT 30.2 Sodium Potassium Chloride Carbon Dioxide Anion Gap BUN Creatinine Estim Creat Clear Calc eGFR BUN/Creatinine Ratio Glucose Calculated Osmolality Lactic Acid 2.1 H Calcium Corrected Calcium Phosphorus Magnesium Total Bilirubin AST ALT Alkaline Phosphatase Troponin I < 0.020 Total Protein Albumin Globulin Albumin/Globulin Ratio Prostate Specific Ag TSH 10/07/24 10/08/24 22:06 04:57 WBC 13.0 H RBC 4.03 L Hgb 12.6 L Hct 37.1 L MCV 92 MCH 31.3 MCHC 34.0 RDW Std Deviation 51.8 H Plt Count 152 D Neut % (Auto) 88 H Lymph % (Auto) 6 L [place] % (Auto) 5 Eos % (Auto) 1 Baso % (Auto) 0 Neut # (Auto) 11.4 H Lymph # (Auto) 0.8 L [place] # (Auto) 0.6 Eos # (Auto) 0.1 Baso # (Auto) 0.0 Immature Gran # (Auto) 0.08 H Absolute Nucleated RBC 0.00 Immature Gran % 1 H Nucleated RBC % 0 PT 11.9 INR 1.1 APTT 70.3 H D 51.7 H D Sodium 142 Potassium 3.4 Chloride 111 H Carbon Dioxide 19.0 L Anion Gap 12 BUN 12 Creatinine 1.4 H Estim Creat Clear Calc 49.3 L eGFR 54 L BUN/Creatinine Ratio 9 L Glucose 96 Calculated Osmolality 282 Lactic Acid Calcium 8.4 Corrected Calcium 8.7 Phosphorus 2.1 L Magnesium 1.8 Total Bilirubin 1.3 H AST 26 ALT 29 Alkaline Phosphatase 85 D Troponin I 0.024 Total Protein 5.6 L Albumin 3.6 D Globulin 2.0 L Albumin/Globulin Ratio 1.8 Prostate Specific Ag 6.41 H TSH 1.70 Quality Measures Quality Measures none Advance care planning discussed with:: patient Assessment & Plan Assessment Current Active Medications: Generic Name Dose Route Start Last Admin Trade Name Freq PRN Reason Stop Dose Admin Acetaminophen 650 mg 10/07/24 15:30 Acetaminophen Supp 650 Mg Supp PA 11/06/24 15:29 Q6HR PRN Fever > 100.5 Acetaminophen 650 mg 10/07/24 15:30 Acetaminophen Supp 650 Mg Supp PA 11/06/24 15:29 Q6H PRN PAIN SCALE 1-3 (mild Sodium Chloride 1,000 mls @ 100 mls/hr 10/07/24 15:30 10/08/24 12:18 Ns IV 11/06/24 15:29 100 mls/hr .Q10H DIPAK Administration Piperacillin/Tazobactam/Dextrose 3.375 gm in 50 mls @ 12.5 mls/hr 10/07/24 22:00 10/08/24 13:58 Zosyn IV 10/14/24 21:59 12.5 mls/hr Q8HR DIPAK Administration Protocol Heparin Sodium/Dextrose 25,000 unit in 250 mls @ 9.798 mls/hr 10/07/24 16:00 10/08/24 08:46 Heparin In D5w Ivpb IV 10/21/24 15:59 12 units/kg/hr .Q24H DIPAK 9.798 mls/hr Titration Protocol 12 UNITS/KG/HR Metoprolol Tartrate 25 mg 10/07/24 15:55 10/08/24 08:41 Metoprolol Tartrate 25 Mg Tablet PO 11/06/24 15:54 25 mg BID DIPAK Administration Morphine Sulfate 2 mg 10/07/24 15:30 Morphine Sulf Inj 10 Mg/Ml Vial IVP 10/12/24 15:29 Q4H PRN PAIN SCALE 7-10 (Severe Ondansetron HCl 4 mg 10/07/24 15:30 Ondansetron Inj 2 Mg/Ml Inj 2 Ml IV 11/06/24 15:29 Q6H PRN NAUSEA OR VOMITING Protocol Oseltamivir Phosphate 75 mg 10/07/24 21:00 10/08/24 08:41 Oseltamivir 75 Mg Capsule PO 10/14/24 20:59 75 mg BID DIPAK Administration Pantoprazole Sodium 40 mg 10/07/24 15:45 10/08/24 08:41 Pantoprazole Inj 40 Mg Vial IVP 11/06/24 15:44 40 mg QDAY DIPAK Administration Pharmacy Consult 1 each 10/07/24 15:42 Pharmacy Renal Dose Adjustment 1 Ea XX 11/06/24 15:41 PRN PRN CONSULT Plan Summary:A 69-year-old male patient with past medical history of hypertension, hypercholesteremia, history of renal cell carcinoma status post right nephrectomy, diverticulosis, was brought to the ED due to acute onset of generalized weakness and mild abdominal discomfort that started today at 4:30 AM. Patient was admitted for sepsis secondary to pneumonia/diverticulitis/UTI. #Sepsis most likely secondary to diverticulitis #Diverticulitis #Influenza pneumonia with possible secondary bacterial infection #Left pyelonephritis versus perinephric infection Patient presented with generalized weakness, for episodes of defecation of normal stool within 12 hours, 138/84, pulse rate of 140, respiratory rate of 19, temperature of 100.9, was saturating well on room air. Labs showed CBC WBC of 12.7, hemoglobin stable at 14, CT scan showed sigmoid diverticulitis with no peridiverticular abscess. Lactic acid was 2.8. Plan ? Start the patient on clear liquid diet advance as tolerated ? Continue the patient on Zosyn ? DC IV fluid if patient tolerate feeding well ? Continue close monitoring for diverticulitis complications ? Follow-up on the final urine culture and blood culture ? Continue the patient on Tamiflu ? Follow-up on MRSA, Legionella screening ? Continue patient on airborne and droplet precautions #New onset A-fib with RVR #History of hypertension On presentation patient heart rate was 145, EKG showed A-fib with RVR Patient denied any history of A-fib with RVR or any heart problems. [id number] was 2 Has bled of 5 Plan ? Discussion with the patient regarding risk and benefits from tubulation was contacted, patient agreed on the anticoagulation prophylaxis ? Continue the patient on metoprolol tartrate 25 mg p.o. twice daily ? Heparin drip ACS protocol dose ? Follow-up on echocardiogram ? Consider consulting cardiology if needed ? Hold home medications #CKD #History of right nephrectomy secondary to renal cell carcinoma #Prostatomegaly with irregular contour Patient denied his knowledge of his chronic kidney disease. Patient denied any urine tract symptoms Serum creatinine is improving today 1.4, PSA came back 6.4 Plan ? Will continue aggressive antibiotic therapy ? Follow-up with any gymnastic teacher regularly on discharge ? Patient will need to follow-up with urologist for his prostate irregularities and elevated PSA ? Strict in and out every shift ? Avoid nephrotoxic medications ? Pharmacy to dose medications Hospital Maintenance: FEN: Clear liquid diet advance as tolerated DVT ppx: Heparin GI ppx: Protonix IV lines: PIV [place]: None Code status: Full code Dispo: Telemetry - Patient's plan and care discussed with my attending, Dr. Arsen Lange MD Internal Medicine PGY-2 Attending Provider Attestation/Addendum I attest that I was physically present for the evaluation, physical examination, lab and imaging review of the patient with the residents. I discussed the case with the residents and agree with the findings and plans of care as documented above. Bry Leger MD
--- NOTE | 2024-10-08 15:38 | ECHO_ITS ---
Transthoracic Echo Report Ht (in): 66 Wt (lb): 180 Exam Location: Portable Status: Inpatient Studio Operation Engineer: CARLOS Sampson^^^^ Indications: Procedure Performed: BP: 120 / 70 HR: 77 Technical Quality: Technically difficult study MEASUREMENTS (Male / Female) Normal Values 2D ECHO LV Diastolic Diameter PLAX 4.7 cm 4.2 - 5.9 / 3.9 - 5.3 cm LV Systolic Diameter PLAX 3.2 cm IVS Diastolic Thickness 0.6 cm 0.6 - 1.0 / 0.6 - 0.9 cm LVPW Diastolic Thickness 1.0 cm 0.6 - 1.0 / 0.6 - 0.9 cm LV Relative Wall Thickness 0.3 LVOT Diameter 1.9 cm Aortic Root Diameter 3.7 cm LA Systolic Diameter LX 3.3 cm 3.0 - 4.0 / 2.7 - 3.8 cm LA Volume Index 34.7 cm?/m? 16 - 28 cm?/m? DOPPLER AV Peak Velocity 128.0 cm/s AV Peak Gradient 6.6 mmHg AV Mean Gradient 4.0 mmHg AV Velocity Time Integral 24.6 cm AI Peak Velocity 256.0 cm/s AI Peak Gradient 26.2 mmHg AI Pressure Half Time 764.0 ms LVOT Peak Velocity 94.6 cm/s LVOT Peak Gradient 3.6 mmHg LVOT Velocity Time Integral 22.9 cm LVOT Cardiac Index 2534.9 cm?/min?m? AV Area Cont Eq vti 2.6 cm? AV Area Cont Eq pk 2.1 cm? MV Area PHT 4.0 cm? MR Peak Velocity 421.0 cm/s MR Peak Gradient 70.9 mmHg Mitral E Point Velocity 61.4 cm/s Mitral A Point Velocity 57.0 cm/s Mitral E to A Ratio 1.1 LV E' Lateral Velocity 10.0 cm/s Mitral E to LV E' Lateral Ratio 6.2 LV E' Septal Velocity 8.0 cm/s Mitral E to LV E' Septal Ratio 7.7 TR Peak Velocity 225.5 cm/s TR Peak Gradient 20.3 mmHg FINDINGS Left Ventricle Normal left ventricular size, wall thickness, systolic function with no obvious regional wall motion abnormalities. There is grade II diastolic dysfunction of the left ventricle (pseudonormal filling pattern). The left ventricular ejection fraction is normal, estimated at 60-65%. Right Ventricle The right ventricle is normal in size and systolic function. The estimated right ventricular systolic pressure, 21 mmHg. Left Atrium The left atrium is normal by two-dimensional, color flow and Doppler imaging with no structural abnormalities, no thrombus formation present. Right Atrium The right atrium is normal by two-dimensional imaging, color flow and Doppler imaging with no structural abnormalities, no thrombus formation present. Atrial Septum The interatrial septum appears normal with no evidence of a shunt. Aorta The aorta is normal by two-dimensional, color flow and Doppler interrogation. Mitral Valve Mild- mitral regurgitation. Mild mitral annular calcification. Aortic Valve The aortic valve is trileaflet and normal to two-dimensional, color flow and Doppler interrogation. Tricuspid Valve There is mild tricuspid valve regurgitation. Pulmonic Valve Trivial pulmonic valve regurgitation. Vessels The pulmonary artery appears normal. The inferior vena cava pulmonary and hepatic veins appear normal. Pericardium The pericardium is normal by two-dimensional imaging. There is no significant pericardial effusion. CONCLUSIONS indication: New onset Afib Normal-sized cardiac chambers. Normal-sized left ventricle with normal left and wall motion ejection fraction of 60%. Mitral valve thickening with mild mitral regurgitation. Mild tricuspid regurgitation. Normal right atrium right ventricle normal RV function. No cardiac thrombi seen. Deepthi Kang (Electronically Signed) Final Date: 08 Oct 2024 12:13
--- NOTE | 2024-10-08 15:43 | PC.SS ---
SS met with patient regarding his d/c plan.? Pt is alert/oriented.? Pt was admitted for Generalized Weakness ABD Discomfort.? Pt confirmed demographic and contact information is correct on facesheet.? Pt resides with son.? Pt ambulates independently without assistance or DME.? Pt is ok with all ADLs.? Patient?s pharmacy [facility] choice [facility] [address] Pt named his dtr, Irma Collier, phone# [phone] medical decision maker if she is unable.? SS provided verbal options for d/c to home or SNF.? Pt refused SNF.? Patient?s choice is to return home upon d/c.? Pt states not diabetic and is not on dialysis.? Pt states he followed up with PCP 5 months ago.? Dtr will provide transportation home. D/C plan:? Return home Next of Kin:? Irma Collier, dtr, phone# [phone] PCP:? Dr. Fidencio Rodriguez from [facility] Address:? Correct on facesheet
[2024-10-08 16:33] LABS: Partial Thromboplastin Time 41.7 Seconds (22.0-36.0)
[2024-10-08] MEDS: HEPARIN SOD INJ 5000 UNIT/ML VIAL 2000 UNIT IVP (17:50)
[2024-10-08] MEDS: Heparin/D5w 25K 250 ML Ivpb 25,000 UNIT/250 ML BAG 11.431 UNIT IV (17:51)
[2024-10-09] VITALS (11 sets, daily range): BP systolic 129–165; BP diastolic 74–104; PULSE 61–81; RESP 12–19; TEMP 36.7–37.6; O2SAT 94–99; BMI 29.0
[2024-10-09 00:51] LABS: Partial Thromboplastin Time 53.5 Seconds (22.0-36.0)
[2024-10-09] MEDS: PIPER/TAZO 3.375 GM PREMIX 3.375 GM/50 ML BAG IV ×3 (05:52→23:29)
[2024-10-09 06:20] LABS: Basophils % (Auto) 0 % (0-2.5); Eosinophils # (Auto) 0.1 Thou/mm3 (0.0-0.5); Eosinophils % (Auto) 1 % (0-10); Monocytes # (Auto) 0.6 Thou/mm3 (0.0-0.8); Monocytes % (Auto) 6 % (0-12); Nucleated Red Blood Cell % 0 /100 WBC (0); White Blood Count 9.3 Thou/mm3 (3.8-10.6)
[2024-10-09 06:22] LABS: Immature Granulocytes % (Auto) 1 % (0-0); Immature Granulocytes Auto 0.05 Thou/mm3 (0.00-0.00); Lymphocytes # (Auto) 0.9 Thou/mm3 (1.0-4.8); Lymphocytes % (Auto) 9 % (10-50); Mean Corpuscular HGB Conc 34.3 g/dl (31.0-37.0); Mean Corpuscular Hemoglobin 30.6 pg (25.0-35.0); Mean Corpuscular Volume 89 fL (80-100); Neutrophils # (Auto) 7.7 Thou/mm3 (1.8-7.7); Neutrophils % (Auto) 82 % (37-80); Platelet Count 143 Thou/mm3 (140-440); RDW Standard Deviation 46.9 fL (35.1-43.9); Red Blood Count 3.92 Miln/mm3 (4.50-5.90)
[2024-10-09 07:23] LABS: Alanine Aminotransferase 23 U/L (10-49); Albumin, Serum 3.7 gm/dL (3.4-4.8); Albumin/Globulin Ratio 1.9 (1.2-2.2); Alkaline Phosphatase 100 U/L (46-116); Anion Gap 10 (7-16); Aspartate Amino Transferase 20 U/L (0-34); BUN/Creatinine Ratio 7 Ratio (12-20); Bilirubin,Total 1.2 mg/dL (0.3-1.2); Blood Urea Nitrogen 9 mg/dL (9-23); Calcium 8.9 mg/dL (8.3-10.6); Calcium (Corrected) 9.1 mg/dL (8.5-10.1); Chloride 109 mMol/L (98-107); Creatinine (Component) 1.3 mg/dL (0.6-1.3); Glucose 87 mg/dL (74-106); Osmolality,Calculated 277 (275-295); Phosphorous 2.5 mg/dL (2.4-5.1); Potassium 3.4 mMol/L (3.4-5.1); Sodium 140 mMol/L (136-145); Total Protein 5.7 gm/dL (5.7-8.2); eGFR 59 See Note
[2024-10-09] MEDS: OSELTAMIVIR 75 MG CAPSULE PO (08:44)
[2024-10-09] MEDS: METOPROLOL TARTRATE 25 MG TABLET PO (08:44)
[2024-10-09] MEDS: POTASSIUM CHLORIDE 20 mEq TABCR 40 MEQ PO (08:44)
[2024-10-09] MEDS: PANTOPRAZOLE INJ 40 MG VIAL IVP ×2 (08:45→23:28)
[2024-10-09 08:56] LABS: Partial Thromboplastin Time 47.6 Seconds (22.0-36.0)
--- NOTE | 2024-10-09 09:33 | PC.NURSE ---
Dr. Tejada notified, heprin gtt turned off per Dr. Blanton at bedside
--- NOTE | 2024-10-09 09:59 | ESPR_ITS ---
<Statement entered by Brent Lange MD - 10/10/24 17:26> Patient was seen and examined at bedside. Agree with assessment and plan in this note. - Patient's plan and care discussed with my attending, Dr. Lucy Lange MD Internal Medicine PGY-2 Documentation for date of: 10/09/24 Subjective Subjective Interval history: Patient examined at bedside today. No acute overnight events. Telemetry reviewed, rate controlled, still in fib. Patient reports he is doing okay. He says that abdominal pain has greatly improved. He also says that has been having dark bowel movements. He says he had a colonoscopy in [place] about 3 to 4 months ago. He has no other complaints at this time. Exam Vital Signs Temp Pulse Resp BP Pulse Ox O2 Del Method 98.2 F 70 16 163/80 H 94 L Room Air 10/09/24 04:00 10/09/24 08:44 10/09/24 04:00 10/09/24 08:44 10/09/24 04:00 10/09/24 04:00 Narrative Exam General: AAOx3, NAD, pleasant male HEENT: Moist mucous membranes, conjunctiva clear, EOMI, PERRLA, Cardiovascular: S1, S2, radial pulses +2 bilat, RRR Pulmonary: CTAB bilat no cough, no wheezing GI: Minimal tenderness to light or deep palpitation, no guarding, rigidity, rebound tenderness or distension Extremities: No presence of trace or pitting edema in lower extremities bilaterally, dorsalis pedis pulses +2 bilaterally Neuro: AAOx3, no focal motor or sensory deficits in the UE or LE bilat Psych: Good judgement, thought and behavior Objective Labs 10/10/24 05:59 10/10/24 05:59 Labs: Laboratory Results - last 24 hr 10/08/24 10/08/24 10/09/24 15:20 23:48 05:09 WBC 9.3 RBC 3.92 L Hgb 12.0 L Hct 35.0 L MCV 89 MCH 30.6 MCHC 34.3 RDW Std Deviation 46.9 H Plt Count 143 Neut % (Auto) 82 H Lymph % (Auto) 9 L [place] % (Auto) 6 Eos % (Auto) 1 Baso % (Auto) 0 Neut # (Auto) 7.7 Lymph # (Auto) 0.9 L [place] # (Auto) 0.6 Eos # (Auto) 0.1 Baso # (Auto) 0.0 Immature Gran # (Auto) 0.05 H Absolute Nucleated RBC 0.00 Immature Gran % 1 H Nucleated RBC % 0 APTT 41.7 H D 53.5 H D 47.6 H Sodium 140 Potassium 3.4 Chloride 109 H Carbon Dioxide 21.0 Anion Gap 10 BUN 9 Creatinine 1.3 Estim Creat Clear Calc 53.0 L eGFR 59 L BUN/Creatinine Ratio 7 L Glucose 87 Calculated Osmolality 277 Calcium 8.9 Corrected Calcium 9.1 Phosphorus 2.5 Magnesium 2.0 Total Bilirubin 1.2 AST 20 ALT 23 Alkaline Phosphatase 100 Total Protein 5.7 Albumin 3.7 Globulin 2.0 L Albumin/Globulin Ratio 1.9 Quality Measures Quality Measures none Advance care planning discussed with:: patient Assessment & Plan Assessment Current Active Medications: Generic Name Dose Route Start Last Admin Trade Name Freq PRN Reason Stop Dose Admin Acetaminophen 650 mg 10/07/24 15:30 Acetaminophen Supp 650 Mg Supp IA 11/06/24 15:29 Q6HR PRN Fever > 100.5 Acetaminophen 650 mg 10/07/24 15:30 Acetaminophen Supp 650 Mg Supp IA 11/06/24 15:29 Q6H PRN PAIN SCALE 1-3 (mild Piperacillin/Tazobactam/Dextrose 3.375 gm in 50 mls @ 12.5 mls/hr 10/07/24 22:00 10/09/24 05:52 Zosyn IV 10/14/24 21:59 12.5 mls/hr Q8HR DIPAK Administration Protocol Heparin Sodium/Dextrose 25,000 unit in 250 mls @ 9.798 mls/hr 10/07/24 16:00 10/09/24 09:34 Heparin In D5w Ivpb IV 10/21/24 15:59 0 units/kg/hr .Q24H DIPAK 0 mls/hr Titration Protocol 12 UNITS/KG/HR Metoprolol Tartrate 25 mg 10/07/24 15:55 10/09/24 08:44 Metoprolol Tartrate 25 Mg Tablet PO 11/06/24 15:54 25 mg BID DIPAK Administration Morphine Sulfate 2 mg 10/07/24 15:30 Morphine Sulf Inj 10 Mg/Ml Vial IVP 10/12/24 15:29 Q4H PRN PAIN SCALE 7-10 (Severe Ondansetron HCl 4 mg 10/07/24 15:30 Ondansetron Inj 2 Mg/Ml Inj 2 Ml IV 11/06/24 15:29 Q6H PRN NAUSEA OR VOMITING Protocol Oseltamivir Phosphate 75 mg 10/07/24 21:00 10/09/24 08:44 Oseltamivir 75 Mg Capsule PO 10/14/24 20:59 75 mg BID DIPAK Administration Pantoprazole Sodium 40 mg 10/07/24 15:45 10/09/24 08:45 Pantoprazole Inj 40 Mg Vial IVP 11/06/24 15:44 40 mg QDAY DIPAK Administration Pharmacy Consult 1 each 10/07/24 15:42 Pharmacy Renal Dose Adjustment 1 Ea XX 11/06/24 15:41 PRN PRN CONSULT Potassium Chloride 20 meq 10/09/24 12:00 Potassium Chloride 20 Meq Tabcr PO 10/09/24 12:01 X1 ONE Plan Assessment A 69-year-old male patient with past medical history of hypertension, hypercholesteremia, history of renal cell carcinoma status post right nephrectomy, diverticulosis, was brought to the ED due to acute onset of generalized weakness and mild abdominal discomfort that started today at 4:30 AM. Patient was admitted for sepsis secondary to pneumonia/diverticulitis/UTI. #Sepsis most likely secondary to diverticulitis #Diverticulitis #Influenza pneumonia with possible secondary bacterial infection #Left pyelonephritis versus perinephric infection Patient presented with generalized weakness, for episodes of defecation of normal stool within 12 hours, 138/84, pulse rate of 140, respiratory rate of 19, temperature of 100.9, was saturating well on room air. Labs showed CBC WBC of 12.7, hemoglobin stable at 14, CT scan showed sigmoid diverticulitis with no peridiverticular abscess. Lactic acid was 2.8 10/09: MRSA negative, urine culture and blood culture was negative Plan: ? Continue the patient on Zosyn (10/07- ? Continue the patient on Tamiflu renally dosed (10/07- ? Follow-up Legionella ? Continue patient on airborne and droplet precautions #Acute blood loss anemia DDx: GI Bleed, Cancer, chronic anemia, medication induced FOBT: Positive NSAID use: None Blood thinner use: Was on heparin for A-fib Hgb 12, however, FOBT positive Plan: ? Trend CBC ? Iron studies panel ? Peripheral blood smear ? Transfusion protocol hemoglobin below 7 ? Holding A/C ? Avoiding any NSAIDs ? SCDs ? Protonix 40 mg IV BID ? GI consulted, appreciate recs ? EGD tonight ? Follow-up H&H at 4 PM #New onset A-fib with RVR #History of hypertension On presentation patient heart rate was 145, EKG showed A-fib with RVR Patient denied any history of A-fib with RVR or any heart problems. [id number] was 2 HAS-BLED: 5 Holding anticoagulation in setting of acute blood loss anemia Plan ? Continue the patient on metoprolol tartrate 25 mg p.o. twice daily ? Holding heparin/anticoagulation in setting of acute blood loss anemia ? Follow-up on echocardiogram ? Cardiology consulted, appreciate recs ? Potassium and magnesium above 4 and 2 respectively ? Telemetry #CKD #History of right nephrectomy secondary to renal cell carcinoma #Prostatomegaly with irregular contour Patient denied his knowledge of his chronic kidney disease. Patient denied any urine tract symptoms Creatinine 1.3 today Plan ? Will continue aggressive antibiotic therapy ? Follow-up with any canine deputy regularly on discharge ? Patient will need to follow-up with urologist for his prostate irregularities and elevated PSA ? Strict in and out every shift ? Avoid nephrotoxic medications ? Pharmacy to dose medications #Health Maintenance Disposition: Telemetry DVT prophylaxis: SCDs GI prophylaxis: Protonix 40 mg IV twice daily Diet: N.p.o. CODE STATUS: Full code Patient seen and care discussed with my senior resident, Dr. Lange , and my attending physician, Dr. Arsen Blanton, PGY-1 Attending Provider Attestation/Addendum I attest that I was physically present for the evaluation, physical examination, lab and imaging review of the patient with the residents. I discussed the case with the residents and agree with the findings and plans of care as documented above. At bedside today, patient is states she is feeling well, his abdominal pain has been improving. Patient was noticed to have darker stool. States that he has been having episodes of dark stool. Patient had colonoscopy about 3 to 4 months ago but was told that it was normal. With concern of upper GI bleeding, we will obtain GI consult, start him on Protonix, keep him n.p.o. Patient is planned for EGD tonight with his GI. Continues to be on Zosyn for diverticulitis and possible pneumonia. Continues to be on oseltamivir for influenza. Patient continues to be on A-fib, rate controlled on metoprolol. Holding anticoagulation in setting of possible GI bleeding. We will obtain cardiology consult for new onset A-fib, we will obtain echocardiogram. Kidney function continues to improve, we will continue to monitor closely. Bry Leger MD
--- NOTE | 2024-10-09 11:44 | PC.SS ---
Update: Patient is on room air. Heparin drip on hold. Patient is NPO. Dr. Noriega is consulting.
[2024-10-09] MEDS: POTASSIUM CHL 10 mEq IVPB 10 MEQ/100 ML BAG 100 MEQ IV ×2 (12:55→13:59)
[2024-10-09 16:17] LABS: Hematocrit 37.2 % (41.0-53.0)
--- NOTE | 2024-10-09 20:54 | PD.IMCONS ---
HPI Data of Consult Requesting Physician: Bry Leger MD Primary Care Provider: Fidencio Rodriguez MD Consult Narrative Reason for consult: Dark stools, melena History of present illness: 69 years old male comes in for evaluation to the emergency room with generalized weakness nausea could not vomit low-grade fever and abdominal pain CT scan of the abdomen pelvis along with chest showed right lower lobe pneumonia left perinephric stranding right renal cell carcinoma status post right nephrectomy and an acute sigmoid diverticulitis Patient was also found to be in atrial fibrillation with RVR Patient does have a history of essential hypertension hyperlipidemia and renal cell carcinoma status post right nephrectomy I was consulted by the ICU team as she was a telemetry patient in ICU and they noticed melanotic stools cc:: cc: Bry Leger MD Review of Systems Review of Systems Systems Reviewed: All systems reviewed, normal except as documented Past Medical History Surgical History OTHER SURGICAL HX: Renal cell carcinoma status post right nephrectomy Essential hypertension Hyperlipidemia Influenza A right base pneumonia on this admission Acute sigmoid diverticulitis mild to moderate Meds Home Medications and Allergies Home Medications ?Medication ?Instructions ?Recorded ?Confirmed ?Type amlodipine 10 mg-benazepril 20 mg 1 cap PO QDAY 05/17/24 05/17/24 History capsule Held on 05/18/24. Instructions: Resume on 06/01/24. Holding combo (amlodipine-benazepril) due to TACO. Repeat basic metabolic panel, and if kidney function improves, have PCP resume amlodipine-benazepril atorvastatin 40 mg tablet 40 mg PO QDAY 05/17/24 05/17/24 History Allergies Allergy/AdvReac Type Severity Reaction Status Date / Time No Known Allergies Allergy Verified 10/07/24 11:16 Exam Vital Signs Temp Pulse Resp BP Pulse Ox O2 Del Method 98.8 F 73 17 152/90 H 99 Room Air 10/09/24 20:48 10/09/24 20:48 10/09/24 20:48 10/09/24 20:48 10/09/24 20:48 10/09/24 20:48 Constitutional Comments: Chronically ill-appearing Routine Respiratory Exam Comments: Normal to auscultation Routine Abdominal Exam Comments: Left-sided tenderness no rebound Results Labs 10/09/24 16:01 10/09/24 05:09 Labs: Short CBC 10/09/24 10/09/24 Range/Units 05:09 16:01 WBC 9.3 (3.8-10.6) Thou/mm3 Hgb 12.0 L 13.0 L (13.5-16.0) g/dL Hct 35.0 L 37.2 L (41.0-53.0) % Plt Count 143 (140-440) Thou/mm3 BMP 10/09/24 05:09 Sodium 140 Potassium 3.4 Chloride 109 H Carbon Dioxide 21.0 BUN 9 Creatinine 1.3 Glucose 87 Calcium 8.9 Liver Function 10/09/24 Range/Units 05:09 Total Bilirubin 1.2 (0.3-1.2) mg/dL AST 20 (0-34) U/L ALT 23 (10-49) U/L Alkaline Phosphatase 100 (46-116) U/L Albumin 3.7 (3.4-4.8) gm/dL Assessment and Plan Additional Assessment & Plan Additional Plan: # Occult GI bleeding Plan Informed consent obtained for fiberoptic esophagogastroduodenoscopy with possible biopsy possible therapeutic intervention under intravenous moderate sedation and the procedure was scheduled for today Other medical problems include Acute sigmoid diverticulitis Influenza A pneumonia Essential hypertension Hyperlipidemia Renal cell carcinoma status post right nephrectomy Possible left-sided pyelonephritis Thank you very much for the opportunity to participate in the care of this patient
[2024-10-10] VITALS (10 sets, daily range): BP systolic 121–163; BP diastolic 74–91; PULSE 56–85; RESP 15–21; TEMP 36.3–37.1; O2SAT 95–99; BMI 29.0
[2024-10-10] MEDS: OSELTAMIVIR 30 MG CAPSULE PO ×2 (00:39→08:06)
[2024-10-10] MEDS: METOPROLOL TARTRATE 25 MG TABLET PO ×2 (00:41→08:06)
[2024-10-10] MEDS: PIPER/TAZO 3.375 GM PREMIX 3.375 GM/50 ML BAG IV (06:03)
[2024-10-10 06:22] LABS: Basophils % (Auto) 0 % (0-2.5); Eosinophils # (Auto) 0.1 Thou/mm3 (0.0-0.5); Eosinophils % (Auto) 2 % (0-10); Hematocrit 37.3 % (41.0-53.0); Hemoglobin 12.8 g/dL (13.5-16.0); Immature Granulocytes % (Auto) 1 % (0-0); Immature Granulocytes Auto 0.04 Thou/mm3 (0.00-0.00); Lymphocytes # (Auto) 0.8 Thou/mm3 (1.0-4.8); Lymphocytes % (Auto) 13 % (10-50); Mean Corpuscular HGB Conc 34.3 g/dl (31.0-37.0); Mean Corpuscular Hemoglobin 30.7 pg (25.0-35.0); Mean Corpuscular Volume 89 fL (80-100); Monocytes # (Auto) 0.5 Thou/mm3 (0.0-0.8); Monocytes % (Auto) 8 % (0-12); Neutrophils # (Auto) 4.5 Thou/mm3 (1.8-7.7); Neutrophils % (Auto) 76 % (37-80); Nucleated Red Blood Cell % 0 /100 WBC (0); Platelet Count 156 Thou/mm3 (140-440); RDW Standard Deviation 45.5 fL (35.1-43.9); Red Blood Count 4.17 Miln/mm3 (4.50-5.90); White Blood Count 5.9 Thou/mm3 (3.8-10.6)
[2024-10-10 06:41] LABS: Alanine Aminotransferase 24 U/L (10-49); Albumin/Globulin Ratio 1.8 (1.2-2.2); Alkaline Phosphatase 118 U/L (46-116); Anion Gap 8 (7-16); Aspartate Amino Transferase 20 U/L (0-34); BUN/Creatinine Ratio 6 Ratio (12-20); Blood Urea Nitrogen 8 mg/dL (9-23); Carbon Dioxide 23.9 mMol/L (20.0-31.0); Chloride 107 mMol/L (98-107); Creatinine (Component) 1.4 mg/dL (0.6-1.3); Estimated Creatinine Clearance 49.2 mL/min (>60); Globulin 2.2 gm/dL (2.3-3.5); Glucose 95 mg/dL (74-106); Magnesium 2.1 mg/dL (1.6-2.6); Osmolality,Calculated 275 (275-295); Phosphorous 3.1 mg/dL (2.4-5.1); Potassium 3.7 mMol/L (3.4-5.1); Sodium 139 mMol/L (136-145); Total Protein 6.2 gm/dL (5.7-8.2); eGFR 54 See Note
[2024-10-10 06:44] LABS: Ferritin 140 ng/mL (10.5-307.3); Iron 57 mcg/dL (65-175); Percent Iron Saturation 21 % (20-55); Total Iron Binding Capacity 269 mcg/dL (250-425); Unsaturated Iron Binding 212 (225-295)
[2024-10-10 07:55] LABS: Path Review Blood Smear Sent to Pathologist
[2024-10-10] MEDS: PANTOPRAZOLE INJ 40 MG VIAL IVP (08:05)
[2024-10-10] MEDS: POTASSIUM CHLORIDE 20 mEq TABCR 40 MEQ PO (11:21)
--- NOTE | 2024-10-10 14:43 | ESDS_ITS ---
<Statement entered by Brent Lange MD - 10/10/24 15:39> Patient was seen and examined at bedside, patient denied any new symptoms. He mentions that his stool now is brown and does not have any black tarry stool. EGD was done by the school lunch manager Dr. Noriega and there was no source of bleeding was found. Dr. Noriega recommended to do a colonoscopy outpatient and he he allowed full anticoagulation. Risk and benefits regarding anticoagulation was discussed with the patient, patient expresses understanding and he opted to continue with the anticoagulation therapy. He was instructed to stop the Eliquis in case of any source or signs of bleeding, and also instructed to stop medication if he noticed black discoloration of his stool. Other instructions as below. - Patient's plan and care discussed with my attending, Dr. Lucy Lange MD Internal Medicine PGY-2 Planned Discharge Date 10/10/24 DS: Providers Provider Date of admission: 10/07/24 15:21 Primary care physician: Fidencio Rodriguez MD Admitting Provider: Rolando Muhammad MD Attending Provider on Admission: Bry Leger MD Consults: 10/09/24 10:45 Consult to Gastroenterology Routine Comment: FOBT positive Consulting Provider: Margarita Noriega Attending Provider on DC: Bry Leger MD Discharging Provider: Bry Leger MD DS: Diagnosis Problem List Completed Was Problem List Reviewed/Reconciled?: Yes Hospital Course Hospital Course Hospital course: 69-year-old male patient with past medical history of hypertension, hyp ercholesteremia, history of renal cell carcinoma status post right nephrectomy, diverticulosis was admitted to [facility] on October 07, 2024 for diverticulitis, influenza pneumonia and new onset A-fib with RVR. At the ED patient vital signs showed blood pressure of 138/84, pulse rate of 140, respiratory rate of 19, temperature of 100.9, was saturating well on room air. Labs showed CBC WBC of 12.7, hemoglobin stable at 14, potassium was 3.5, serum creatinine was found to be 1.6 his baseline serum creatinine usually however between 2.6-2.2. eGFR 46, lactic acid of 2.9, procalcitonin was found to be 42.08, urinalysis was clean. Serology screening showed positive result of influenza A and influenza B however negative for COVID. EKG showed atrial fibrillation with rapid ventricular response and left axis deviation. Chest/abdomen/pelvis CT scan without contrast showed mild pneumonia of the right base, 1 mm lower pole nonobstructing left renal calculus, and also showed left p erinephric stranding most likely secondary to UTI. It also showed mild acute sigmoid diverticulitis with no peridiverticular abscess. CT also showed significant prostatomegaly with prostatic irregular contour. Patient was given metoprolol 2.5 mg IV x 1 and then another dose which had controlled his heart rate, and was also given 2.5 L per sepsis bolus and Rocephin x 1. Medicine was consulted and patient admitted to the floors. While admitted on the floors, patient was continue on broad-spectrum antibiotics including Zosyn, and patient's abdominal pain had gotten better. Patient's urine culture and blood cultures had resulted negative. Patient was also started on metoprolol tartrate 25 mg twice daily and this kept him rate controlled while admitted. Patient was also started on Tamiflu which was renally dosed. Patient had an episode of dark stools in which it tested positive FOBT. GI was consulted for further workup and patient had a EGD which showed gastritis and patient was recommended to do outpatient colonoscopy and was given approval to resume anticoagulation. Patient was then recommended to follow-up with a lining cementer 1 week from discharge, and also see school lunch manager for possible colonoscopy for further admission of colonic bleed. Of note patient did say that he had diverticulosis and a colonoscopy about 4 months ago in [place]. He was recommended to continue take his medicines as prescribed, and also finish antibiotics as prescribed. He was also told to stop taking Eliquis, the blood thinner if he notices black stool or bleeding. He was also recommended to follow-up with his journeyman electrician pv installer within 1 week. Discharge instructions: Follow up with your PCP within one week from discharge Follow up with a lining cementer within one week from discharge Follow up with gastroenteroloist for possible colonoscopy and adress the suspecion of colon bleed Please return to the ED in case of worsening of your symptoms Use antibiotics Flagyl and ciprofloxacin as prescribed Follow up with a kidney doctor within one week from discharge WE PRESCRIBED YOU A BLOOD THINNER TO PREVENT BLOOD CLOTS, PLEASE STOP THE MEDICINE IF WE STARTED TO BLACK STOOL OR BLEEDING You will need to Repeat some blood work including CBC and CMP within one week from discharge before visiting your PCP Problem list #Sepsis, ruled out #Diverticulitis #Influenza pneumonia with possible secondary bacterial infection #Acute blood loss anemia #New onset A-fib with RVR #History of hypertension #CKD #History of right nephrectomy secondary to renal cell carcinoma #Prostatomegaly with irregular contour Discharge summary was reviewed with my attending Dr. Leger and my senior resident Dr. Nazario Blanton, PGY-1 Time Spent with Patient Time attestation: Total time spent providing and/or coordinating discharge services: Time spent: Less than 30 minutes Exam Vital Signs Temp Pulse Resp BP Pulse Ox O2 Del Method O2 Flow Rate 98.8 F 61 21 H 121/79 96 Nasal Cannula 3 10/10/24 12:00 10/10/24 12:00 10/10/24 12:00 10/10/24 12:00 10/10/24 12:00 10/10/24 12:00 10/10/24 12:00 Narrative Exam General: AAOx3, NAD, pleasant male HEENT: Moist mucous membranes, conjunctiva clear, EOMI, PERRLA, Cardiovascular: S1, S2, radial pulses +2 bilat, RRR Pulmonary: CTAB bilat no cough, no wheezing GI: Minimal tenderness to light or deep palpitation, no guarding, rigidity, rebound tenderness or distension Extremities: No presence of trace or pitting edema in lower extremities bilaterally, dorsalis pedis pulses +2 bilaterally Neuro: AAOx3, no focal motor or sensory deficits in the UE or LE bilat Psych: Good judgement, thought and behavior Discharge Plan Plan Patient Disposition: HOME (Self Care) Patient condition on transfer: Stable Care Plan Goals: Discharge instructions: Follow up with your PCP within one week from discharge Follow up with a lining cementer within one week from discharge Follow up with gastroenteroloist for possible colonoscopy and adress the suspecion of colon bleed Please return to the ED in case of worsening of your symptoms Use antibiotics Flagyl and ciprofloxacin as prescribed Follow up with a kidney doctor within one week from discharge WE PRESCRIBED YOU A BLOOD THINNER TO PREVENT BLOOD CLOTS, PLEASE STOP THE MEDICINE IF WE STARTED TO BLACK STOOL OR BLEEDING You will need to Repeat some blood work including CBC and CMP within one week from discharge before visiting your PCP Prescriptions/Referrals Prescriptions/Med Rec: New metoprolol tartrate 25 mg Tablet 25 mg PO BID 15 Days Qty: 30 0RF oseltamivir 30 mg Capsule 30 mg PO BID 4 Days Qty: 8 0RF pantoprazole [address] for susp in packet 40 mg PO BID 15 Days Qty: 30 0RF metronidazole 500 mg tablet 500 mg PO Q8H 7 Days Qty: 21 0RF Eliquis 5 mg tablet 5 mg PO BID 5 Days Qty: 10 0RF ciprofloxacin 500 mg/5 mL suspension,microcapsule recon 500 mg PO BID 7 Days Qty: 70 0RF Continued atorvastatin 40 mg tablet 40 mg PO QDAY Patient Comments: TAKE 1 TABLET BY MOUTH EVERY DAY Discontinued amoxicillin-pot clavulanate 875-125 mg tablet 1 tab PO BID Qty: 20 0RF amlodipine-benazepril 10-20 mg capsule 1 cap PO QDAY Patient Comments: TAKE 1 CAPSULE BY MOUTH EVERY DAY Referrals: Fidencio Rodriguez MD [Primary Care Provider] - Patient/Caregiver Discharge Instructions Education Materials: ED Atrial Fibrillation, ED Influenza (Adult), ED Pneumonia (Adult) Print Language: Serbian Stand Alone Forms: Jessie Award Info., Patient Portal Info Letter Discharge Order Discharge Orders: Discharge (Routine); Ordered 10/10/24 Ordered By: Brent Lange Quality Discharge Quality Measures VTE prophylaxis (SCDs) Attestestation MD Attestation I attest that I was physically present for the evaluation, physical examination, lab and imaging review of the patient with the residents. I discussed the case with the residents and agree with the findings and plans of care as documented above. Bry Leger MD
--- NOTE | 2024-10-10 21:22 | ESPR_ITS ---
Documentation for date of: 10/10/24 Subjective Subjective Interval history: Late entry for the note Case discussed with internal medicine team. Okay to discharge the patient home on Protonix or omeprazole hemoglobin hematocrit 12.8 and 37.4 Exam Vital Signs Temp Pulse Resp BP Pulse Ox O2 Del Method O2 Flow Rate 98.5 F 70 20 137/74 H 96 Room Air 3 10/10/24 15:00 10/10/24 15:00 10/10/24 15:00 10/10/24 15:00 10/10/24 15:00 10/10/24 15:00 10/10/24 12:00 Objective Labs 10/10/24 05:59 10/10/24 05:59 Labs: Laboratory Results - last 24 hr 10/10/24 05:59 WBC 5.9 RBC 4.17 L Hgb 12.8 L Hct 37.3 L MCV 89 MCH 30.7 MCHC 34.3 RDW Std Deviation 45.5 H Plt Count 156 Neut % (Auto) 76 Lymph % (Auto) 13 [place] % (Auto) 8 Eos % (Auto) 2 Baso % (Auto) 0 Neut # (Auto) 4.5 Lymph # (Auto) 0.8 L [place] # (Auto) 0.5 Eos # (Auto) 0.1 Baso # (Auto) 0.0 Immature Gran # (Auto) 0.04 H Absolute Nucleated RBC 0.00 Immature Gran % 1 H Nucleated RBC % 0 Smear Path Review Sent to Pathologist Sodium 139 Potassium 3.7 Chloride 107 Carbon Dioxide 23.9 Anion Gap 8 BUN 8 L Creatinine 1.4 H Estim Creat Clear Calc 49.2 L eGFR 54 L BUN/Creatinine Ratio 6 L Glucose 95 Calculated Osmolality 275 Calcium 9.0 Corrected Calcium 9.0 Phosphorus 3.1 Magnesium 2.1 Iron 57 L TIBC 269 Iron Saturation 21 Unsat Iron Binding 212 L Ferritin 140 Total Bilirubin 1.0 AST 20 ALT 24 Alkaline Phosphatase 118 H Total Protein 6.2 Albumin 4.0 Globulin 2.2 L Albumin/Globulin Ratio 1.8 Impressions Impression: Gastritis Esophagitis Plan Okay to discharge patient on PPI once a day Assessment & Plan A&P Narrative # Occult GI bleeding Plan Informed consent obtained for fiberoptic esophagogastroduodenoscopy with possible biopsy possible therapeutic intervention under intravenous moderate sedation and the procedure was scheduled for today Other medical problems include Acute sigmoid diverticulitis Influenza A pneumonia Essential hypertension Hyperlipidemia Renal cell carcinoma status post right nephrectomy Possible left-sided pyelonephritis Thank you very much for the opportunity to participate in the care of this patient Time Spent With Patient Time: Total time spent is greater than 50% in coordination of care (as documented) at patient's floor/unit and/or counseling patient:
[2024-10-11 06:41] LABS: Legionella Ag, EIA, Urine* NOT DETECTED
== END 2024-10-10 15:20 | disposition home or self-care (01) | DRG 377 ==
LOC: SERX 14:17 → SERHOLD 15:59 → S3NX 18:50 → S2SX 10-08 10:47 → S2NX 10-09 18:28
PROVIDERS: Nurse Practitioner Primary Care; Specialist; Student in an Organized Health Care Education/Training Program; Admitting Provider Student in an Organized Health Care Education/Training Program; Emergency Provider Emergency Medicine; PCP Internal Medicine; Visit Provider Student in an Organized Health Care Education/Training Program
PROC: 0DJ08ZZ Inspection of Upper Intestinal Tract, Via Natural or Artificial Opening Endoscopic (ICD-10-PCS; CPT 43239; principal; 2024-10-09 23:30)
DX: K57.33 Diverticulitis of large intestine without perforation or abscess with bleeding (principal); J10.01 Influenza due to other identified influenza virus with the same other identified influenza virus pneumonia; K20.91 Esophagitis, unspecified with bleeding; N39.0 Urinary tract infection, site not specified; D62 Acute posthemorrhagic anemia; E78.00 Pure hypercholesterolemia, unspecified; I48.91 Unspecified atrial fibrillation; N40.0 Benign prostatic hyperplasia without lower urinary tract symptoms; N18.9 Chronic kidney disease, unspecified; I12.9 Hypertensive chronic kidney disease with stage 1 through stage 4 chronic kidney disease, or unspecified chronic kidney disease; N20.0 Calculus of kidney; Z90.5 Acquired absence of kidney; Z85.528 Personal history of other malignant neoplasm of kidney; K29.71 Gastritis, unspecified, with bleeding
CPT/HCPCS: 36415; 71046; 71250; 74176; 80053; 81001; 82728; 83540; 83550; 83605; 83690; 83735; 84100; 84145; 84153; 84443; 84484; 85014; 85018; 85025; 85610; 85730; 87040; 87081; 87086; 87400; 87449; 87811; 93005; 93306; 96361; 96365; 96367; 96368; 96375; 99285; J0696; J1200; J1644; J2250; J2470; J2543; J3010; J3480; J3490; J7030; J7040; J7050; A9270